=== PATIENT | male | born 1945 | race Caucasian/White ===

== ENCOUNTER 2016-09-10 11:17 | Emergency (ER) | payer OTHER ==
[~2016-09-10] VITALS: Ht 177.8 cm; Wt 95.7 kg
[2016-09-10 11:24] VITALS: TEMP 36.6; Ht 177.8 cm; Wt 95.7 kg
[2016-09-10] MEDS ORDERED: LOSA25TA18 PO (11:40)
[2016-09-10] MEDS ORDERED: ASPI81TA28 PO (11:40)
[2016-09-10] MEDS ORDERED: METO25TA56 PO (11:40)
[2016-09-10] MEDS ORDERED: SILD100T PO (11:40)
[2016-09-10] MEDS ORDERED: ROSU40TA PO (11:40)
[2016-09-10] MEDS ORDERED: ISOS30TA3 PO (11:40)
[2016-09-10 12:26] LABS: BASO % 0.2 %; BASO ABS # 0.03 K/uL (0-0.2); COMPLETE YES; EOS % 1.7 %; HEMATOCRIT 38.3 % (42-52); IG% 0.2 %; LYMPH % 5.2 %; LYMPH ABS # 0.69 K/uL (1.2-3.4); MEAN CELL VOLUME 85.1 fL (80-100); MEAN CORPUSCULAR HEMOGLOBIN 31.1 pg (25-34); MEAN CORPUSCULAR HGB CONC 36.6 g/dl (32-36); MEAN PLATELET VOLUME 10.4 fL (7.4-10.4); MONO % 8.2 %; NEUT % 84.5 %; PLATELET COUNT 163 K/uL (130-400); WHITE BLOOD COUNT 13.24 K/uL (4.8-10.8)
[2016-09-10 12:42] LABS: ALT/SGPT 25 U/L (12-78); AST/SGOT 12 U/L (15-37); BLOOD UREA NITROGEN 23 mg/dl (7-18); BUN/CREATININE RATIO 18.8 (10-20); CALCIUM 8.5 mg/dl (8.5-10.1); CARBON DIOXIDE 28 mmol/L (21-32); CHLORIDE 104 mmol/L (98-107); GLUCOSE 115 mg/dl (70-99); POTASSIUM 4.2 mmol/L (3.5-5.1); SODIUM 139 mmol/L (136-145)
--- NOTE | 2016-09-10 12:45 | EMERGENCY ROOM VISIT NOTE ---
ED Visit Note First contact with patient: 11:40 I have seen and examined this patient with Adelso Steele and generally agree with the treatment plan as discussed. Current/Historical Medications Scheduled Aspirin (Aspirin Ec), 81 MG PO DAILY Isosorbide Mononitrate Ext Rel (Imdur Ext Rel), 30 MG PO QAM Losartan Potassium (Cozaar), 25 MG PO DAILY Metoprolol Tartrate (Lopressor) (Lopressor), 25 MG PO DAILY Rosuvastatin Calcium (Crestor), 40 MG PO DAILY Sildenafil Citrate (Viagra), 50 MG PO PRN Allergies Coded Allergies: Amoxicillin (Verified Allergy, Intermediate, HIVES, 09/10/16) Lisinopril (Verified Allergy, Unknown, COUGH, 09/10/16) Vital Signs Date Time Temp Pulse Resp B/P Pulse Ox O2 Delivery O2 Flow Rate FiO2 09/10/16 11:24 36.6 58 18 114/62 93 Room Air Laboratory Results 09/10/16 12:10 Red Blood Count 4.50, Mean Corpuscular Volume 85.1, Mean Corpuscular Hemoglobin 31.1, Mean Corpuscular Hemoglobin Concent 36.6, Mean Platelet Volume 10.4, Neutrophils (%) (Auto) 84.5, Lymphocytes (%) (Auto) 5.2, Monocytes (%) (Auto) 8.2, Eosinophils (%) (Auto) 1.7, Basophils (%) (Auto) 0.2, Neutrophils # (Auto) 11.18, Lymphocytes # (Auto) 0.69, Monocytes # (Auto) 1.09, Eosinophils # (Auto) 0.22, Basophils # (Auto) 0.03 09/10/16 12:10 Test 09/10/16 11:47 09/10/16 12:10 Creatine Kinase MB Ratio (0-3.0) White Blood Count 13.24 K/uL (4.8-10.8) Red Blood Count 4.50 M/uL (4.7-6.1) Hemoglobin 14.0 g/dL (14.0-18.0) Hematocrit 38.3 % (42-52) Mean Corpuscular Volume 85.1 fL (80-100) Mean Corpuscular Hemoglobin 31.1 pg (25-34) Mean Corpuscular Hemoglobin Concent 36.6 g/dl (32-36) Platelet Count 163 K/uL (130-400) Mean Platelet Volume 10.4 fL (7.4-10.4) Neutrophils (%) (Auto) 84.5 % Lymphocytes (%) (Auto) 5.2 % Monocytes (%) (Auto) 8.2 % Eosinophils (%) (Auto) 1.7 % Basophils (%) (Auto) 0.2 % Neutrophils # (Auto) 11.18 K/uL (1.4-6.5) Lymphocytes # (Auto) 0.69 K/uL (1.2-3.4) Monocytes # (Auto) 1.09 K/uL (0.11-0.59) Eosinophils # (Auto) 0.22 K/uL (0-0.5) Basophils # (Auto) 0.03 K/uL (0-0.2) RDW Standard Deviation 39.2 fL (36.4-46.3) RDW Coefficient of Variation 12.7 % (11.5-14.5) Immature Granulocyte % (Auto) 0.2 % Immature Granulocyte # (Auto) 0.03 K/uL (0.00-0.02) Anion Gap 7.0 mmol/L (3-11) Est Creatinine Clear Calc Drug Dose 65.6 ml/min Estimated GFR () 70.1 Estimated GFR (Non- 60.5 BUN/Creatinine Ratio 18.8 (10-20) Calcium Level 8.5 mg/dl (8.5-10.1) Aspartate Amino Transf (AST/SGOT) 12 U/L (15-37) Alanine Aminotransferase (ALT/SGPT) 25 U/L (12-78) Albumin 3.7 gm/dl (3.4-5.0) Departure Information Referrals Seb Valdez III, M.D. (PCP) Patient Instructions My [facility]
[2016-09-10 12:47] LABS: ALB/GLOB RATIO 1.1 (0.9-2); ALKALINE PHOSPHATASE 65 U/L (45-117)
--- NOTE | 2016-09-10 12:49 | DIAGNOSTIC IMAGING REPORT ---
CHEST 2 VIEWS ROUTINE CLINICAL HISTORY: Syncope. COMPARISON STUDY: Chest radiograph March 31, 2010. FINDINGS: Lung volumes are normal. Lungs are clear with the exception of suspected left basilar atelectasis. No consolidation is present and there is no evidence of pulmonary edema. The cardiomediastinal silhouette is normal. IMPRESSION: No acute cardiopulmonary findings. Electronically signed by: Samir Walker M.D. 09/10/2016 12:47 PM Dictated Date/Time: 09/10/2016 12:47 PM
[2016-09-10 13:16] VITALS: BP 113/62; PULSE 58; O2SAT 94
--- NOTE | 2016-09-10 20:29 | EMERGENCY ROOM VISIT NOTE ---
History First contact with patient: 11:40 Chief Complaint: SYNCOPE Stated Complaint: SYNCOPE Nursing Triage Summary: Patient arrived via ALS. Patient states was at voodoo standing and singing when he suddenly felt nauseated and his vision began closing in. Per patients , "he lowered himself down to his seat, his head went down to his chest, he made some strange sounds, and then he stood right back up". Patient blacked out for approximately 30 seconds. Patient states has been sick recently with cold symptoms. Patient states feels fine at this time. A&Ox4. Denies CP, SOB, N/V/D, dizziness or lightheadedness at this time. History of Present Illness The patient is a 71 year old white male who presents to the Emergency Room with complaints of passing out at voodoo today. Patient states he remembers standing up during song. He had a sudden wave of severe nausea and began getting tunnel vision. He does not remember anything after that. His states that he sat down, put his chin on his chest, had a few deep guttural breaths, and seemed to pass out. She rubbed his hand and asked if he was okay. She states he then stood up as if nothing was wrong. Patient begins to remember at that point. He was able to ambulate out of voodoo. He arrives by ALS ambulance. He states he feels fine now. No prior history of similar episode. He denies any chest pain, shortness of breath, or abdominal pain at the time of his syncopal episode. He denies any headache. No change currently in vision or speech. He denies any weakness in his extremities. He states he is very healthy. He denies any diabetes or significant vascular disease. He came in for evaluation today just to be reassured. Review of Systems REVIEW OF SYSTEM: HEENT: No dizziness, visual problems, hearing loss, or tinnitus. There is no difficulty swallowing and no oral lesions are present. PULMONARY: No cough, shortness of breath, sputum production or hemoptysis. CARDIOVASCULAR: No chest pain, palpitations, shortness of breath or peripheral edema. GASTROINTESTINAL: No diarrhea, constipation, nausea, vomiting, or abdominal pain. GENITOURINARY: No dysuria, frequency, urgency or nocturia. NEUROLOGIC: No weakness, muscle tenderness, epilepsy or history of neurological problems. MUSCULOSKELETAL: No history of joint tenderness/swelling. No history of arthritis or arthralgias. SKIN: No rashes or lesions. PSYCHIATRIC: No history of depression or mental illness. ENDOCRINE: No history of diabetes, thyroid disorders, or abnormal hair growth. Past Medical/Surgical History Previous surgeries: None Medical history: Significant for hypertension, elevated cholesterol, and erectile dysfunction Family History For heart disease. Parents are . Social History Smoking Status: Former Smoker Smokeless Tobacco Use: No Alcohol Use: occasionally Drug Use: none Marital Status: Housing Status: lives with family Occupation Status: retired Current/Historical Medications Scheduled Aspirin (Aspirin Ec), 81 MG PO DAILY Isosorbide Mononitrate Ext Rel (Imdur Ext Rel), 30 MG PO QAM Losartan Potassium (Cozaar), 25 MG PO DAILY Metoprolol Tartrate (Lopressor) (Lopressor), 25 MG PO DAILY Rosuvastatin Calcium (Crestor), 40 MG PO DAILY Sildenafil Citrate (Viagra), 50 MG PO PRN Allergies Coded Allergies: Amoxicillin (Verified Allergy, Intermediate, HIVES, 09/10/16) Lisinopril (Verified Allergy, Unknown, COUGH, 09/10/16) Physical Exam Vital Signs Date Time Temp Pulse Resp B/P Pulse Ox O2 Delivery O2 Flow Rate FiO2 09/10/16 13:16 58 18 113/62 94 09/10/16 11:24 36.6 58 18 114/62 93 Room Air Physical Exam Gen.: Well developed, well-nourished, elderly white male, who looks younger than his stated age. Laying on a bed. Alert and oriented. Skin:Warm and dry with good turgor. No rashes or lesions. No ecchymosis or erythema. The patient is not diaphoretic. No abrasions. HEENT: Normocephalic atraumatic. Eyes PERRLA, EOMI. No conjunctiva or scleral injection. Ears TMs intact bilaterally with good light reflexes. No erythema or bulging. No hemotympanum. Canals are patent. Nares patent bilaterally without turbinate enlargement. No significant drainage. No epistaxis. Oropharynx without erythema or exudate. Uvula midline, oral mucosa moist. No lesions present. Heart: Heart bradycardic with regular rhythm. No MGR. Peripheral pulses are 2+ . Lungs: Lungs are clear to auscultation. No crackles rhonchi or wheezing. Good air movement. The patient is able to take a deep breath. Abdomen: Abdomen was inspected, auscultated, and palpated. Bowel sounds present x 4. Soft, nontender to palpation. No hepato-splenomegaly. No masses noted. Musculoskeletal: Gross motor function of the upper and lower extremities is intact and unremarkable. No appreciable unilateral weakness. Neurologic: Cranial nerves II through XII are intact. Gross sensation is intact across the upper and lower extremities by soft touch. DTRs are 2+ bilaterally at the knees. Radial, median, and ulnar nerve functions are clearly intact for both upper extremities. Medical Decision & Procedures ER Provider Diagnostic Interpretation: EKG obtained today was reviewed with Dr. Paul. It shows sinus bradycardia with a rate of [address] or T-wave changes. Chest x-ray obtained today was read by radiology as unremarkable. Laboratory Results 09/10/16 12:10 Red Blood Count 4.50, Mean Corpuscular Volume 85.1, Mean Corpuscular Hemoglobin 31.1, Mean Corpuscular Hemoglobin Concent 36.6, Mean Platelet Volume 10.4, Neutrophils (%) (Auto) 84.5, Lymphocytes (%) (Auto) 5.2, Monocytes (%) (Auto) 8.2, Eosinophils (%) (Auto) 1.7, Basophils (%) (Auto) 0.2, Neutrophils # (Auto) 11.18, Lymphocytes # (Auto) 0.69, Monocytes # (Auto) 1.09, Eosinophils # (Auto) 0.22, Basophils # (Auto) 0.03 09/10/16 12:10 Test 09/10/16 12:10 White Blood Count 13.24 K/uL (4.8-10.8) Red Blood Count 4.50 M/uL (4.7-6.1) Hemoglobin 14.0 g/dL (14.0-18.0) Hematocrit 38.3 % (42-52) Mean Corpuscular Volume 85.1 fL (80-100) Mean Corpuscular Hemoglobin 31.1 pg (25-34) Mean Corpuscular Hemoglobin Concent 36.6 g/dl (32-36) Platelet Count 163 K/uL (130-400) Mean Platelet Volume 10.4 fL (7.4-10.4) Neutrophils (%) (Auto) 84.5 % Lymphocytes (%) (Auto) 5.2 % Monocytes (%) (Auto) 8.2 % Eosinophils (%) (Auto) 1.7 % Basophils (%) (Auto) 0.2 % Neutrophils # (Auto) 11.18 K/uL (1.4-6.5) Lymphocytes # (Auto) 0.69 K/uL (1.2-3.4) Monocytes # (Auto) 1.09 K/uL (0.11-0.59) Eosinophils # (Auto) 0.22 K/uL (0-0.5) Basophils # (Auto) 0.03 K/uL (0-0.2) RDW Standard Deviation 39.2 fL (36.4-46.3) RDW Coefficient of Variation 12.7 % (11.5-14.5) Immature Granulocyte % (Auto) 0.2 % Immature Granulocyte # (Auto) 0.03 K/uL (0.00-0.02) Anion Gap 7.0 mmol/L (3-11) Est Creatinine Clear Calc Drug Dose 65.6 ml/min Estimated GFR () 70.1 Estimated GFR (Non- 60.5 BUN/Creatinine Ratio 18.8 (10-20) Calcium Level 8.5 mg/dl (8.5-10.1) Total Bilirubin 1.6 mg/dl (0.2-1) Aspartate Amino Transf (AST/SGOT) 12 U/L (15-37) Alanine Aminotransferase (ALT/SGPT) 25 U/L (12-78) Alkaline Phosphatase 65 U/L (45-117) Total Creatine Kinase 144 U/L (39-308) Creatine Kinase MB 1.4 ng/ml (0.5-3.6) Creatine Kinase MB Ratio 1.0 (0-3.0) Troponin I < 0.015 ng/ml (0-0.045) Total Protein 7.2 gm/dl (6.4-8.2) Albumin 3.7 gm/dl (3.4-5.0) Globulin 3.5 gm/dl (2.5-4.0) Albumin/Globulin Ratio 1.1 (0.9-2) CBC, chem panel, CK/CK-MB, and troponin were obtained today. They are unremarkable Except for mild anemia ED Course Patient was educated regarding today's findings as was his . Conservative care measures were discussed. IV was established. Labs were obtained. Chest x -ray and EKG were also obtained. Patient was monitored while in the ED. He remained stable. He felt well enough for discharge. Patient will follow-up with his PCP to discuss a possible change in his blood pressure medication, as this may be making him bradycardic. This may have contributed to his syncopal episode. Maintain hydration. Return to the ED for any other acute changes. Medical Decision Possibility of being overheated, hypoglycemia, electrolyte abnormality, hypotension, arrhythmia, acute HI, or other cardiac source was also considered. Impression Primary Impression: Syncope Departure Information Referrals Seb Valdez III, M.D. (PCP) Patient Instructions My [facility] Problem Qualifiers Primary Impression: Syncope Encounter type: initial encounter
== END 2016-09-10 13:17 | disposition home or self-care (01) ==
LOC: EDBD 11:17 → C.EDC 11:19
DX: R55 Syncope and collapse (principal); R00.1 Bradycardia, unspecified; Z87.891 Personal history of nicotine dependence; Z79.82 Long term (current) use of aspirin

== ENCOUNTER 2017-07-23 05:33 | Inpatient (IN) | payer OTHER ==
--- NOTE | 2017-07-11 08:45 | PAT Medication Instructions ---
Service Date Jul 11, 2017. Current Home Medication List Aspirin (Aspirin Ec), 81 MG PO QAM Isosorbide Mononitrate Ext Rel (Imdur Ext Rel), 30 MG PO QAM Losartan Potassium (Cozaar), 25 MG PO QAM Metoprolol Tartrate (Lopressor) (Lopressor), 25 MG PO QAM Naproxen (Aleve), 220 MG PO prn Nitroglycerin (Nitrostat), 0.4 MG UT PRN Rosuvastatin Calcium (Crestor), 40 MG PO QAM Sildenafil Citrate (Viagra), 100 MG PO PRN Medication Instructions For Your Scheduled Surgery - Continue as directed: Nitroglycerin (Nitrostat), 0.4 MG UT PRN - Hold the following medications the morning of surgery: Losartan Potassium (Cozaar), 25 MG PO QAM Sildenafil Citrate (Viagra), 100 MG PO PRN Naproxen (Aleve), 220 MG PO prn (otherwise okay to continue per surgeon) - Take the following medications the morning of surgery with a sip of water OTHERWISE NOTHING TO EAT OR DRINK AFTER MIDNIGHT: Isosorbide Mononitrate Ext Rel (Imdur Ext Rel), 30 MG PO QAM Aspirin (Aspirin Ec), 81 MG PO QAM (unless otherwise indicated by surgeon) Metoprolol Tartrate (Lopressor) (Lopressor), 25 MG PO QAM Rosuvastatin Calcium (Crestor), 40 MG PO QAM If you have any questions please call us at [phone] or [phone] or [phone]
[~2017-07-23] VITALS: Ht 175.3 cm; Wt 93.3 kg
[2017-07-23] VITALS (7 sets, daily range): BP systolic 101–141; BP diastolic 58–88; PULSE 58–70; TEMP 36.4–37; O2SAT 90–95
[~2017-07-23 05:33] MED LIST: ASPI81TA28 PO; ISOS30TA3 PO; LOSA25TA18 PO; METO25TA56 PO; NAPR1TAB9 PO; NTRGSL/4 UT; ROSU40TA PO; SILD100T PO
[2017-07-23] MEDS ORDERED: CLINDAMYCIN IV 900 MG in DEXTROSE 5% 50ML IV SCH (06:00)
[2017-07-23] MEDS ORDERED: GENERAL ORDER PROBLEM SCH (06:00)
[2017-07-23] MEDS ORDERED: LACTATED RINGER'S 1000ML 1,000 ML IV SCH (06:00)
[2017-07-23] MEDS ORDERED: PHENYLEPHRINE 100MCG/ML 5ML SYR IV PRN (06:30)
[2017-07-23] MEDS ORDERED: EpHEDrine SULFATE INJ 50 MG/ML AMP IV PRN (06:30)
[2017-07-23] MEDS ORDERED: FENTANYL CITRATE INJ 50 MCG/1 ML 2 ML VIAL IV PRN (06:30)
[2017-07-23] MEDS ORDERED: HYDROmorphone INJ 1 MG/ML SYR IV PRN (06:30)
[2017-07-23] MEDS ORDERED: ATROPINE SULFATE 0.1 MG/ML 5ML SYR IV PRN (06:30)
[2017-07-23] MEDS ORDERED: ONDANSETRON INJ 2 MG/ML 2 ML VIAL IV PRN (06:30)
[2017-07-23] MEDS ORDERED: BUPIVACAINE 0.5 % 5 MG/1 ML MPF 30ML VIAL ONE (06:40)
[2017-07-23] MEDS ORDERED: LIDOCAINE HCL 2% 2 ML VIAL (20MG/ML) ONE (06:50)
[2017-07-23] MEDS ORDERED: PROPOFOL IV EMULSION 10 MG/ML 20 ML VIAL IV ONE (06:50)
[2017-07-23] MEDS ORDERED: ROCURONIUM BROMIDE 10 MG/ML 5 ML VIAL IV ONE ×2 (06:50→09:40)
--- NOTE | 2017-07-23 06:50 | History & Physical Bridge Note ---
H&P Re-Evaluation Bridge Note: I have examined the patient, reviewed the History & Physical and in the interval since the performance of the History & Physical I have noted the following changes of clinical significance: No changes noted
[2017-07-23] MEDS ORDERED: MIDAZOLAM HCL 1 MG/ML 2ML VIAL ONE (06:51)
[2017-07-23] MEDS ORDERED: FENTANYL CITRATE INJ 50 MCG/1 ML 2 ML VIAL ONE ×3 (06:51→08:47)
[2017-07-23] MEDS ORDERED: CLINDAMYCIN 600 MG/54 ML D5W IV ONE (07:05)
[2017-07-23] MEDS ORDERED: CLINDAMYCIN PHOS 150 MG/ML 2 ML VIAL ONE (07:34)
[2017-07-23] MEDS ORDERED: NEOSTIGMINE METHYLSULFATE 5 MG/5 ML SYR ONE (07:38)
[2017-07-23] MEDS ORDERED: EpHEDrine SULFATE 50MG/5ML SYR ONE (07:38)
[2017-07-23] MEDS ORDERED: ONDANSETRON INJ 2 MG/ML 2 ML VIAL ONE (07:38)
[2017-07-23] MEDS ORDERED: GLYCOPYRROLATE INJ 0.2 MG/ML VIAL ONE (07:38)
[2017-07-23] MEDS ORDERED: DEXAMETHASONE SOD INJ 4 MG/ML VIAL ONE (07:38)
[2017-07-23] MEDS ORDERED: HYDROmorphone INJ 2 MG/ML SYR/VIAL ONE (09:06)
--- NOTE | 2017-07-23 09:54 | [facility] Post Operative Brief Note ---
Immediate Operative Summary Operative Date Jul 23, 2017. Pre-Operative Diagnosis Tubulovillous Adenoma of Right Colon Post-Operative Diagnosis Tubulovillous Adenoma of Right Colon Procedure(s) Performed Laparoscopic Assisted to Open Right Hemicolectomy Surgeon Dr Wynn Courier Driver Surgeon(s) Cora Osman PA-C Estimated Blood Loss 20cc Findings See Below See dictation Specimens A: Right Colon Drains None Anesthesia Type General Complication(s) none Disposition Disposition: Recovery Room / PACU
[2017-07-23] MEDS ORDERED: NALOXONE HCL 0.4 MG/1 ML VIAL/CARP IV PRN (10:00)
[2017-07-23] MEDS ORDERED: HYDROmorphone HCL 0.5MG/ML 50 ML CASSETTE ONE (10:15)
--- NOTE | 2017-07-23 10:35 | Anesthesiology Progress Note ---
Anesthesia Post Op Note Date & Time Jul 23, 2017 at 10:35 Vital Signs Pain Intensity: 0 Vital Signs Past 12 Hours Date Time Temp Pulse Resp B/P (MAP) Pulse Ox O2 Delivery O2 Flow Rate FiO2 07/23/17 10:30 55 16 135/78 97 Nasal Cannula 4 07/23/17 10:20 57 16 128/62 96 Oxymask 10 07/23/17 10:10 55 16 114/63 96 Oxymask 10 07/23/17 10:01 36.2 61 16 130/77 95 Oxymask 10 07/23/17 06:22 36.4 58 20 141/88 94 Room Air Notes Mental Status: alert / awake / arousable, participated in evaluation Pt Amnestic to Procedure: Yes Nausea / Vomiting: adequately controlled Pain: adequately controlled Airway Patency, RR, SpO2: stable & adequate BP & HR: stable & adequate Hydration State: stable & adequate Anesthetic Complications: no major complications apparent
[2017-07-23 12:11] LABS: INR 1.1 (0.9-1.1)
[2017-07-23 12:19] LABS: CREATININE 1.12 mg/dl (0.60-1.40)
[2017-07-23] MEDS: SODIUM CHLORIDE 0.9% 1000ML 1,000 ML IV SCH (12:24)
[2017-07-23] MEDS: D5W AND 1/2NSS + 20MEQ KCL 1,000 ML IV SCH ×2 (12:24→20:33)
[2017-07-23] MEDS: HYDROmorphone HCL 0.5MG/ML 50 ML CASSETTE IV PRN ×2 (14:48→22:51)
[2017-07-23] MEDS: ENOXAPARIN 40 MG/0.4 ML SYR SQ SCH (18:16)
--- NOTE | 2017-07-23 19:04 | OPERATIVE REPORT ---
DATE OF OPERATION: 07/23/2017 PREOPERATIVE DIAGNOSIS: Tubulovillous adenoma of the right colon. POSTOPERATIVE DIAGNOSIS: Same. PROCEDURE: Laparoscopic assisted right hemicolectomy. SURGEON: Dr. Wynn. UNDERWATER HUNTER TRAPPER: Cora Osman PA-C FINDINGS: The colon was not dilated nor was the small bowel. There were no obvious intraabdominal lesions. The liver appeared to be of normal size and contour and the visible bowel appeared normal as well. The tubulovillous adenoma in the right colon had been delineated by colonoscopy. TECHNIQUE: The patient was given a general anesthetic and the area was prepped and draped in usual sterile fashion. A vertical incision was made above the umbilicus, carried down through the subcutaneous tissue to the fascia which was grasped with 2 Adriel clamps and incised between. The peritoneum was identified, incised, and the introducer was placed bluntly. The abdomen was then insufflated to a pressure of 15 mmHg with carbon dioxide. Two 5 mm introducers were placed on the left side of the abdomen. Beginning in the mid right colon, the line of Toldt was divided then I worked inferiorly and superiorly. Working inferiorly, the appendix was adherent to the lateral abdominal wall and those attachments were divided and I worked from a colon down along the mesentery dividing further flimsy attachments. The terminal ileum was also adhesed to the lateral abdominal wall and those adhesions and attachments were divided allowing good mobilization of the cecum and proximal ascending colon. I then worked along the lateral aspect of the right colon working from superior to inferior and dividing further attachments along the line of Toldt up around the hepatic flexure. I then began at the junction of the proximal and middle thirds of the transverse colon and the omentum off the colon wall. I then was able to work towards the right side, placing downward traction on the colon, and dividing and any of the attachments to the posterior abdominal wall and freeing the duodenum away from the mesentery working again from medial to lateral. That allowed me good visualization of the mesentery and any other flimsy attachments were divided. I then worked from medial to lateral, freeing additional areas of the transverse colon to allow for a good mobility. It was clear that the terminal ileum as well as the transverse colon would reach the anterior abdominal wall with ease. Vertical incision was then increased in the abdomen, carried down through the subcutaneous tissue to the fascia which was opened in the midline. The peritoneum was then opened and the gas was allowed to escape. The introducers were then removed. The mobilized colon was easily eviscerated. The site on the terminal ileum was chosen for division and the mesentery was away from the wall of the terminal ileum there and terminal ileum was divided. The site for division of the colon was chosen and the mesentery was away from the wall of the colon and it was divided using the BREANNE as well. The intervening mesentery was divided using the LigaSure. The major vessels were clamped, divided and ligated with 2-0 Vicryl ties as well as a 2-0 silk LigaSure. This was carried from the colon and side towards the small bowel side until the entire mesentery had been divided that specimen was passed off. The area of dissection was inspected for bleeding and none was seen. The small bowel was of approximated towards the colon, making sure not to twist the mesentery and the posterior half of the mesenteric opening was closed with a running 2-0 Vicryl. The small bowel was then approximated to the colon wall using interrupted 3-0 silk sutures. The antimesenteric border of each of the staple lines was removed and one limb of the BREANNE was then passed into each lumen of the small bowel and colon. The BREANNE was then used to perform the anastomosis. At the apex of the staple line, another 3-0 silk suture was placed for reinforcement. The common opening was then closed with a TA stapler. Additional 3-0 silk sutures were placed on the anterior surface of the anastomosis for further reinforcement. The remainder of the mesenteric opening was closed with a running 2-0 Vicryl. The area was inspected for bleeding and none was seen. The anastomosis was placed back into its anatomic position and the omentum was brought down over it. There was no evidence of bleeding. The right upper quadrant was irrigated and irrigation removed. The fascia in the midline of the larger incision was closed with running #1 PDS. The skin of all the incisions was closed with janey. The estimated blood loss was 20 mL. Sponge, needle and instrument counts were correct prior to closure. The patient tolerated surgical procedure without complication and was transferred to recovery. I attest to the content of the Intraoperative Record and any orders documented therein. Any exception s are noted below.
[2017-07-24] VITALS (8 sets, daily range): BP systolic 113–164; BP diastolic 62–77; PULSE 64–73; TEMP 36.6–37.2; O2SAT 92–94; Ht 175.3 cm; Wt 93.3 kg
[2017-07-24] MEDS: D5W AND 1/2NSS + 20MEQ KCL 1,000 ML IV SCH ×3 (03:30→19:26)
[2017-07-24] MEDS: HYDROmorphone HCL 0.5MG/ML 50 ML CASSETTE IV PRN ×3 (07:04→22:59)
[2017-07-24 07:53] LABS: HEMATOCRIT 40.4 % (42-52); HEMOGLOBIN 14.4 g/dL (14.0-18.0); IG# 0.03 K/uL (0.00-0.02); LYMPH % 4.5 %; MEAN CELL VOLUME 86.3 fL (80-100); MEAN CORPUSCULAR HEMOGLOBIN 30.8 pg (25-34); MEAN CORPUSCULAR HGB CONC 35.6 g/dl (32-36); MEAN PLATELET VOLUME 10.4 fL (7.4-10.4); MONO ABS # 0.93 K/uL (0.11-0.59); NEUT % 88.3 %; NEUT ABS # 11.72 K/uL (1.4-6.5); PLATELET COUNT 174 K/uL (130-400); RED CELL DISTRIBUTION WIDTH CV 13.1 % (11.5-14.5); RED CELL DISTRIBUTION WIDTH SD 41.6 fL (36.4-46.3); WHITE BLOOD COUNT 13.28 K/uL (4.8-10.8)
[2017-07-24 08:09] LABS: CALCIUM 8.4 mg/dl (8.5-10.1); CREATININE 1.2 mg/dl (0.60-1.40); POTASSIUM 4.2 mmol/L (3.5-5.1)
--- NOTE | 2017-07-24 11:10 | Anesthesiology Progress Note ---
Anesthesia Post Op Note Date & Time Jul 24, 2017 at 11:10 Vital Signs Vital Signs Past 12 Hours Date Time Temp Pulse Resp B/P (MAP) Pulse Ox O2 Delivery O2 Flow Rate FiO2 07/24/17 08:00 Room Air 07/24/17 07:10 37.0 70 16 157/73 (101) 93 Room Air 07/24/17 05:55 94 Room Air 07/24/17 03:53 36.6 64 16 113/62 (79) 92 Nasal Cannula 1.0 07/23/17 23:25 Nasal Cannula 1.0 Notes Mental Status: alert / awake / arousable, participated in evaluation Pt Amnestic to Procedure: Yes Nausea / Vomiting: adequately controlled Pain: adequately controlled Airway Patency, RR, SpO2: stable & adequate BP & HR: stable & adequate Hydration State: stable & adequate Anesthetic Complications: no major complications apparent
[2017-07-24] MEDS: SODIUM CHLORIDE 0.9% 1000ML 1,000 ML IV SCH (11:15)
--- NOTE | 2017-07-24 14:23 | Surgery Progress Note ---
Surgery Progress Note Date of Service Jul 24, 2017. Subjective Post OP Day: 1 (s/p laparoscopic assisted right hemicolectomy) + feeling well, + ambulating, + pain controlled, No complaints, No chest pain, No SOB, No bowel movement, No flatus, No nausea, No vomiting Objective Vital Signs: Date Time Temp Pulse Resp B/P (MAP) Pulse Ox O2 Delivery O2 Flow Rate FiO2 07/24/17 11:45 37.1 67 16 146/70 (95) 93 Room Air 07/24/17 08:00 Room Air 07/24/17 07:10 37.0 70 16 157/73 (101) 93 Room Air 07/24/17 05:55 94 Room Air 07/24/17 03:53 36.6 64 16 113/62 (79) 92 Nasal Cannula 1.0 07/23/17 23:25 Nasal Cannula 1.0 07/23/17 22:46 36.9 68 16 110/58 (75) 93 Nasal Cannula 1.0 07/23/17 20:51 37.0 70 16 139/71 (93) 92 Nasal Cannula 1.0 07/23/17 15:30 Nasal Cannula 1.0 07/23/17 15:15 36.5 66 16 101/63 (76) 93 Nasal Cannula 1.0 General Appearance: WD/WN, no apparent distress Head: normocephalic, atraumatic Neck: trachea midline Respiratory/Chest: no respiratory distress, no accessory muscle use Cardiovascular: regular rate, rhythm, no murmur Abdomen: non distended, soft, no organomegaly, no pulsatile mass, + abnormal bowel sounds (absent bowel sounds), + pertinent finding (dressing present) Incision(s): clean, dry (dressing clean and dry, incision not inspected on POD # 1, no drainage) Laboratory Results: Results Past 24 Hours Test 07/24/17 07:14 Range/Units White Blood Count 13.28 4.8-10.8 K/uL Red Blood Count 4.68 4.7-6.1 M/uL Hemoglobin 14.4 14.0-18.0 g/dL Hematocrit 40.4 42-52 % Mean Corpuscular Volume 86.3 80-100 fL Mean Corpuscular Hemoglobin 30.8 25-34 pg Mean Corpuscular Hemoglobin Concent 35.6 32-36 g/dl Platelet Count 174 130-400 K/uL Mean Platelet Volume 10.4 7.4-10.4 fL Neutrophils (%) (Auto) 88.3 % Lymphocytes (%) (Auto) 4.5 % Monocytes (%) (Auto) 7.0 % Eosinophils (%) (Auto) 0.0 % Basophils (%) (Auto) 0.0 % Neutrophils # (Auto) 11.72 1.4-6.5 K/uL Lymphocytes # (Auto) 0.60 1.2-3.4 K/uL Monocytes # (Auto) 0.93 0.11-0.59 K/uL Eosinophils # (Auto) 0.00 0-0.5 K/uL Basophils # (Auto) 0.00 0-0.2 K/uL RDW Standard Deviation 41.6 36.4-46.3 fL RDW Coefficient of Variation 13.1 11.5-14.5 % Immature Granulocyte % (Auto) 0.2 % Immature Granulocyte # (Auto) 0.03 0.00-0.02 K/uL Sodium Level 138 136-145 mmol/L Potassium Level 4.2 3.5-5.1 mmol/L Chloride Level 105 98-107 mmol/L Carbon Dioxide Level 29 21-32 mmol/L Anion Gap 4.0 3-11 mmol/L Blood Urea Nitrogen 14 7-18 mg/dl Creatinine 1.20 0.60-1.40 mg/dl Est Creatinine Clear Calc Drug Dose 62.8 ml/min Estimated GFR () 69.6 Estimated GFR (Non- 60.1 BUN/Creatinine Ratio 11.5 10-20 Random Glucose 128 70-99 mg/dl Calcium Level 8.4 8.5-10.1 mg/dl Assessment & Plan POD # 1 s/p laparoscopic assisted right hemicolectomy -vitals stable, afebrile overnight - abdominal pain minimal - no nausea or vomiting - urinating and ambulating without difficulty Plan: Continue current management Continue NPO, await return of bowel function Encouraged ambulation with assistance, OOB to chair, and incentive spirometry Continue SCDs and Lovenox daily Continue IV Dilaudid AIX ADMINISTRATOR for now, will start PO pain medication once able to take clears Dressing changes to start tomorrow Discussed with Dr. Wynn who agrees with above
[2017-07-24] MEDS ORDERED: NITROGLYCERIN 0.4 MG SL PER TAB CHARGE UT PRN (17:30)
--- NOTE | 2017-07-24 17:32 | Medical Consult ---
Consultation Date of Consultation: Jul 24, 2017. Attending Physician: Zak Wynn M.D. Reason for Consultation: post-op medical management History of Present Illness This is a 72yo M with a PMH of HTN, HLD, CAD and chronic sinus bradycardia who is POD#1 s/p laparoscopic assisted R hemicolectomy by Dr. Wynn. Patient is doing well post-operatively. Has some residual abdominal pressure at surgical site, especially when sitting up. States that pain is being controlled adequately and has been ambulating the halls without problems. Denies any fevers , chills, lightheadedness, headache, chest pain, palpitations, SOB, nausea, vomiting or LE swelling. Has remained NPO since procedure. No bowel movement yet. Has a history of stable CAD but has not required any stenting. Last took blood pressure medications the morning of the surgery. Past Medical/Surgical History Medical Problems: (1) CAD (coronary artery disease) Status: Chronic (2) Chronic sinus bradycardia Status: Chronic (3) HLD (hyperlipidemia) Status: Chronic (4) HTN (hypertension) Status: Chronic (5) Tubulovillous adenoma of colon Status: Chronic Surgical Problems: (1) S/P right hemicolectomy Status: Chronic Family History FH: heart disease FATHER Social History Smoking Status: Former Smoker Alcohol Use: 1-2 drinks daily Drug Use: none Marital Status: Housing Status: lives with family Occupation Status: retired Allergies Coded Allergies: Amoxicillin (Verified Allergy, Intermediate, HIVES, 07/23/17) Lisinopril (Verified Adverse Reaction, Unknown, COUGH, 07/23/17) Home Medications Reported Home Medications Medications Dose Route/Sig Max Daily Dose Days Date Category Aleve (Naproxen) 220 Mg Tab 220 Mg PO PRN 07/11/17 Reported Nitrostat (Nitroglycerin) 0.4 Mg Tab 0.4 Mg UT PRN 07/11/17 Reported Viagra (Sildenafil Citrate) 100 Mg Tab 100 Mg PO PRN 09/10/16 Reported Aspirin Ec (Aspirin) 81 Mg Tab 81 Mg PO QAM 09/10/16 Reported Crestor (Rosuvastatin Calcium) 40 Mg Tab 40 Mg PO QAM 09/10/16 Reported Lopressor (Metoprolol Tartrate) 25 Mg Tab 25 Mg PO QAM 09/10/16 Reported Cozaar (Losartan Potassium) 25 Mg Tab 25 Mg PO QAM 09/10/16 Reported Imdur Ext Rel (Isosorbide Mononitrate) 30 Mg Ertab 30 Mg PO QAM 09/10/16 Reported Current Inpatient Medications Current Inpatient Medications Medications (Trade) Dose Ordered Sig/Goldy Route Start Time Stop Time Status Last Admin Dose Admin Enoxaparin Sodium (Lovenox Inj) 40 mg Q24H SQ 07/23/17 18:00 08/22/17 17:59 07/23/17 18:16 40 MG Ondansetron HCl (Zofran Inj) 4 mg Q6H PRN IV 07/23/17 10:00 08/22/17 09:59 Potassium Chloride/Dextrose/ Sod Cl 1,000 ml @ 125 mls/hr Q8H IV 07/23/17 11:30 08/22/17 11:29 07/24/17 11:47 125 MLS/HR Naloxone HCl (Narcan Inj) 0.1 mg Q5M PRN IV 07/23/17 10:00 08/22/17 09:59 Hydromorphone HCl (Dilaudid Well Cleaner) 25 mg PRN PRN IV 07/23/17 10:00 08/06/17 09:59 07/24/17 15:15 25 MG Sodium Chloride 1,000 ml @ 15 mls/hr Q24H IV 07/23/17 11:15 08/22/17 11:14 07/23/17 12:24 15 MLS/HR Review of Systems Ten systems reviewed and negative except as noted in the HPI. Physical Exam Date Time Temp Pulse Resp B/P (MAP) Pulse Ox O2 Delivery O2 Flow Rate FiO2 07/24/17 15:46 71 158/77 (104) 07/24/17 15:40 Room Air 07/24/17 15:28 37.2 73 18 164/75 (104) 94 Room Air 07/24/17 11:45 37.1 67 16 146/70 (95) 93 Room Air 07/24/17 08:00 Room Air 07/24/17 07:10 37.0 70 16 157/73 (101) 93 Room Air 07/24/17 05:55 94 Room Air 07/24/17 03:53 36.6 64 16 113/62 (79) 92 Nasal Cannula 1.0 07/23/17 23:25 Nasal Cannula 1.0 2/5/18 22:46 36.9 68 16 110/58 (75) 93 Nasal Cannula 1.0 07/23/17 20:51 37.0 70 16 139/71 (93) 92 Nasal Cannula 1.0 General Appearance: WD/WN, no apparent distress, + pertinent finding (Sitting in chair, resting comfortably. ) Head: normocephalic, atraumatic Eyes: normal inspection, PERRL, sclerae normal ENT: normal ENT inspection, hearing grossly normal, pharynx normal Neck: supple, thyroid normal, trachea midline Respiratory/Chest: chest non-tender, lungs clear, normal breath sounds, no respiratory distress, no accessory muscle use Cardiovascular: regular rate, rhythm, no murmur, normal peripheral pulses Abdomen/GI: soft, + tenderness (TTP at surgical site ), + pertinent finding ( Dressing clean, dry, intact. ) Back: normal inspection Extremities/Musculoskelatal: normal inspection, no calf tenderness, no pedal edema Neurologic/Psych: no motor/sensory deficits, alert, normal mood/affect, oriented x 3 Skin: normal color, warm/dry Laboratory Results Last 24 Hours Test 07/24/17 07:14 White Blood Count 13.28 K/uL Red Blood Count 4.68 M/uL Hemoglobin 14.4 g/dL Hematocrit 40.4 % Mean Corpuscular Volume 86.3 fL Mean Corpuscular Hemoglobin 30.8 pg Mean Corpuscular Hemoglobin Concent 35.6 g/dl Platelet Count 174 K/uL Mean Platelet Volume 10.4 fL Neutrophils (%) (Auto) 88.3 % Lymphocytes (%) (Auto) 4.5 % Monocytes (%) (Auto) 7.0 % Eosinophils (%) (Auto) 0.0 % Basophils (%) (Auto) 0.0 % Neutrophils # (Auto) 11.72 K/uL Lymphocytes # (Auto) 0.60 K/uL Monocytes # (Auto) 0.93 K/uL Eosinophils # (Auto) 0.00 K/uL Basophils # (Auto) 0.00 K/uL RDW Standard Deviation 41.6 fL RDW Coefficient of Variation 13.1 % Immature Granulocyte % (Auto) 0.2 % Immature Granulocyte # (Auto) 0.03 K/uL Sodium Level 138 mmol/L Potassium Level 4.2 mmol/L Chloride Level 105 mmol/L Carbon Dioxide Level 29 mmol/L Anion Gap 4.0 mmol/L Blood Urea Nitrogen 14 mg/dl Creatinine 1.20 mg/dl Est Creatinine Clear Calc Drug Dose 62.8 ml/min Estimated GFR () 69.6 Estimated GFR (Non- 60.1 BUN/Creatinine Ratio 11.5 Random Glucose 128 mg/dl Calcium Level 8.4 mg/dl Assessment & Plan This is a 72yo M with a PMH of HTN, HLD, CAD and chronic sinus bradycardia who is POD#1 s/p laparoscopic assisted R hemicolectomy by Dr. Wynn. S/p R hemicolectomy: -POD#1 -Pt is doing well post-operatively -Per general surgery for pain control, wound care, anticoagulation and activities -Monitor H&H, continue incentive spirometry -Discussed advancing diet to NPO except meds with primary team HTN: -Usually well-controlled with SBP ~110s, per patient -BP elevated to 158/77 currently -Has not received home meds since yesterday morning -Give today's dose of imdur, metoprolol, losartan -Resume home dosing schedule tomorrow -Monitor HLD: -Resume crestor tomorrow CAD: -Stable -Resume baby aspirin, statin tomorrow Code status: FULL PCP: Courtney Dispo: Per general surgery Patient seen in collaboration with Dr. Warren. Please see addendum. Will be followed by Dr. Evans starting tomorrow. Thank you for this consultation. We will follow the patient with you during their hospital stay. You [facility] via pager @ . ATTENDING ADDENDUM : pt seen and examined, care co ordinated with Leatha Foster PA-C 72 yo M with past medical hx of CAD , single vessel occlusive disease, HTN , hyperlipidemia , underwent elective rt hemicolectomy today pt had recent colonoscopy showed adenomatous polyp with atypical cells / tubulovillous adenoma was recommended for rt hemicolectomy pt had pre op eval with his Cardiology for surgical risk assessment was found to be stable CAD with acceptable risk to proceed for surgery pt underwent laparoscopic assisted surgery on Sunday07/23/17 no untoward complication noted joshua operatively and post op BP was elevated this Am , pt did not had his BP meds due to post op /NPO status antihypertensives resumed , BP improved to baseline this evening pt denies of any chest pain or SOB abdominal pain controlled with current pain meds pt is still NPO -unable to pass gas , bowel sound remains diminished -post op illeus pt is encouraged to increase activity ambulated independently in [address] multiple times Cont management as per Surgery [facility] Hospitalist team will continue to follow this pt during his hospital course Nicolle Warren MD
[2017-07-24] MEDS ORDERED: LOSARTAN POTASSIUM 25 MG TAB PO ONE (18:00)
[2017-07-24] MEDS ORDERED: METOPROLOL TARTRATE 25 MG TAB PO ONE (18:00)
[2017-07-24] MEDS ORDERED: ISOSORBIDE MONONITRATE 30 MG TABCR PO ONE (18:00)
[2017-07-24] MEDS: ENOXAPARIN 40 MG/0.4 ML SYR SQ SCH (18:25)
[2017-07-25] VITALS (12 sets, daily range): BP systolic 95–130; BP diastolic 56–75; PULSE 71–85; TEMP 36.5–38.1; O2SAT 90–94
[2017-07-25] MEDS: SODIUM CHLORIDE 0.9% 1000ML 1,000 ML IV SCH ×3 (01:43→16:36)
--- NOTE | 2017-07-25 06:56 | Surgery Progress Note ---
Surgery Progress Note Date of Service Jul 25, 2017. Subjective Post OP Day: 2 No bowel movement, No flatus, No nausea, No vomiting Had some abdominal pain earlier this AM Objective Vital Signs: Date Time Temp Pulse Resp B/P (MAP) Pulse Ox O2 Delivery O2 Flow Rate FiO2 07/25/17 04:10 37.3 07/25/17 03:33 37.9 79 17 130/75 (93) 91 Room Air 07/25/17 00:00 Room Air 07/24/17 22:58 36.8 69 16 126/68 (87) 93 Room Air 07/24/17 19:29 73 135/73 (93) 07/24/17 15:46 71 158/77 (104) 07/24/17 15:40 Room Air 07/24/17 15:28 37.2 73 18 164/75 (104) 94 Room Air 07/24/17 11:45 37.1 67 16 146/70 (95) 93 Room Air 07/24/17 08:00 Room Air 07/24/17 07:10 37.0 70 16 157/73 (101) 93 Room Air Abdomen: + distended (mild), + tenderness (right side only) Incision(s): clean, dry, intact Laboratory Results: Results Past 24 Hours Test 07/24/17 07:14 07/25/17 04:44 Range/Units White Blood Count 13.28 4.8-10.8 K/uL Red Blood Count 4.68 4.7-6.1 M/uL Hemoglobin 14.4 14.0-18.0 g/dL Hematocrit 40.4 42-52 % Mean Corpuscular Volume 86.3 80-100 fL Mean Corpuscular Hemoglobin 30.8 25-34 pg Mean Corpuscular Hemoglobin Concent 35.6 32-36 g/dl Platelet Count 174 130-400 K/uL Mean Platelet Volume 10.4 7.4-10.4 fL Neutrophils (%) (Auto) 88.3 % Lymphocytes (%) (Auto) 4.5 % Monocytes (%) (Auto) 7.0 % Eosinophils (%) (Auto) 0.0 % Basophils (%) (Auto) 0.0 % Neutrophils # (Auto) 11.72 1.4-6.5 K/uL Lymphocytes # (Auto) 0.60 1.2-3.4 K/uL Monocytes # (Auto) 0.93 0.11-0.59 K/uL Eosinophils # (Auto) 0.00 0-0.5 K/uL Basophils # (Auto) 0.00 0-0.2 K/uL RDW Standard Deviation 41.6 36.4-46.3 fL RDW Coefficient of Variation 13.1 11.5-14.5 % Immature Granulocyte % (Auto) 0.2 % Immature Granulocyte # (Auto) 0.03 0.00-0.02 K/uL Sodium Level 138 136-145 mmol/L Potassium Level 4.2 3.5-5.1 mmol/L Chloride Level 105 98-107 mmol/L Carbon Dioxide Level 29 21-32 mmol/L Anion Gap 4.0 3-11 mmol/L Blood Urea Nitrogen 14 7-18 mg/dl Creatinine 1.20 0.60-1.40 mg/dl Est Creatinine Clear Calc Drug Dose 62.8 ml/min Estimated GFR () 69.6 Estimated GFR (Non- 60.1 BUN/Creatinine Ratio 11.5 10-20 Random Glucose 128 70-99 mg/dl Calcium Level 8.4 8.5-10.1 mg/dl Assessment & Plan Mild temp elevation, WBC pending Will start antibiotics Continue with sips of clears Continue ambulation
[2017-07-25] MEDS: HYDROmorphone HCL 0.5MG/ML 50 ML CASSETTE IV PRN ×3 (07:29→23:01)
[2017-07-25] MEDS: CIPROFLOXACIN / D5W 400 MG in PREMIXED IN D5W 200 ML IV SCH ×2 (08:27→21:00)
[2017-07-25] MEDS: ISOSORBIDE MONONITRATE 30 MG TABCR PO SCH (08:34)
[2017-07-25] MEDS: ROSUVASTATIN CALCIUM 20 MG TAB PO SCH (08:34)
[2017-07-25] MEDS: ASPIRIN 81 MG ECTAB PO SCH (08:35)
[2017-07-25] MEDS: METOPROLOL TARTRATE 25 MG TAB PO SCH (08:36)
[2017-07-25 08:38] LABS: HEMATOCRIT 37.8 % (42-52); HEMOGLOBIN 13.3 g/dL (14.0-18.0); IG# 0.01 K/uL (0.00-0.02); LYMPH % 5.1 %; MEAN CELL VOLUME 85.7 fL (80-100); MEAN CORPUSCULAR HEMOGLOBIN 30.2 pg (25-34); MEAN CORPUSCULAR HGB CONC 35.2 g/dl (32-36); MEAN PLATELET VOLUME 9.9 fL (7.4-10.4); MONO % 6.5 %; MONO ABS # 0.38 K/uL (0.11-0.59); NEUT % 88.2 %; NEUT ABS # 5.19 K/uL (1.4-6.5); PLATELET COUNT 137 K/uL (130-400); RED CELL DISTRIBUTION WIDTH CV 13.4 % (11.5-14.5); RED CELL DISTRIBUTION WIDTH SD 42.3 fL (36.4-46.3); WHITE BLOOD COUNT 5.88 K/uL (4.8-10.8)
[2017-07-25] MEDS ORDERED: LOSARTAN POTASSIUM 25 MG TAB PO SCH (09:00)
[2017-07-25 09:18] LABS: CALCIUM 8.5 mg/dl (8.5-10.1); CREATININE 0.99 mg/dl (0.60-1.40)
[2017-07-25] MEDS: CLINDAMYCIN IV 600 MG in DEXTROSE 5% 50ML 50 ML IV SCH ×2 (11:24→18:30)
--- NOTE | 2017-07-25 17:40 | Progress Note ---
Medicine Progress Note Date & Time of Visit: Jul 25, 2017 at 17:34. Subjective patient seen resting in bed, comfortable states surgical site feels somewhat sore but no other abdominal pain no cough, dyspnea, sputum no problems with diarrhea or with urination denies other symptoms Objective Last 8 Hrs Date Time Temp Pulse Resp B/P (MAP) Pulse Ox O2 Delivery O2 Flow Rate FiO2 07/25/17 15:41 93 Nasal Cannula 2.0 07/25/17 15:40 Nasal Cannula 2.0 07/25/17 14:42 36.8 76 16 95/56 (69) 91 Nasal Cannula 2.0 07/25/17 12:05 36.8 76 20 96/57 (70) 90 Room Air Physical Exam: General- oriented x 3, not in distress, speaks in sentences with no effort Head- atraumatic Eyes- anicteric ENT- oropharynx clear Neck- supple, no JVD, no adenopathy, no thyromegaly Lungs- clear breath sounds bilaterally Heart- regular rhythm; no murmur, normal rate Abdomen- hypoactive bowel sounds, nondistended, soft, nontender Extremities- no pretibial edema, no calf tenderness; peripheral pulses intact Neuro- alert, oriented x 3; no gross focal deficits Skin- warm & dry Laboratory Results: Last 24 Hours Test 07/25/17 08:27 White Blood Count 5.88 K/uL Red Blood Count 4.41 M/uL Hemoglobin 13.3 g/dL Hematocrit 37.8 % Mean Corpuscular Volume 85.7 fL Mean Corpuscular Hemoglobin 30.2 pg Mean Corpuscular Hemoglobin Concent 35.2 g/dl Platelet Count 137 K/uL Mean Platelet Volume 9.9 fL Neutrophils (%) (Auto) 88.2 % Lymphocytes (%) (Auto) 5.1 % Monocytes (%) (Auto) 6.5 % Eosinophils (%) (Auto) 0.0 % Basophils (%) (Auto) 0.0 % Neutrophils # (Auto) 5.19 K/uL Lymphocytes # (Auto) 0.30 K/uL Monocytes # (Auto) 0.38 K/uL Eosinophils # (Auto) 0.00 K/uL Basophils # (Auto) 0.00 K/uL RDW Standard Deviation 42.3 fL RDW Coefficient of Variation 13.4 % Immature Granulocyte % (Auto) 0.2 % Immature Granulocyte # (Auto) 0.01 K/uL Sodium Level 136 mmol/L Potassium Level 4.0 mmol/L Chloride Level 104 mmol/L Carbon Dioxide Level 24 mmol/L Anion Gap 8.0 mmol/L Blood Urea Nitrogen 13 mg/dl Creatinine 0.99 mg/dl Est Creatinine Clear Calc Drug Dose 76.1 ml/min Estimated GFR () 87.8 Estimated GFR (Non- 75.8 BUN/Creatinine Ratio 13.0 Random Glucose 123 mg/dl Calcium Level 8.5 mg/dl Assessment & Plan This is a 72yo M with a PMH of HTN, HLD, CAD and chronic sinus bradycardia who is POD#1 s/p laparoscopic assisted R hemicolectomy by Dr. Wynn. S/p R hemicolectomy: -POD#2 - BP on the lower side today likely from Dilaudid pump increase IV NSS hold Imdur, Losartan monitor - Low grade fever no clear focus of infection none this afternoon on empiric Cipro and Clinda monitor HTN: -Usually well-controlled with SBP ~110s, per patient - BP on the lower side today likely from Dilaudid pump increase IV NSS hold Imdur, Losartan monitor CAD: -Stable -on ASA Thank you for this consultation. We will follow the patient with you during their hospital stay. You can reach a member of the [facility] Hospitalist Team 08/01 via pager @ . Current Inpatient Medications: Current Inpatient Medications Medications (Trade) Dose Ordered Sig/Goldy Route Start Time Stop Time Status Last Admin Dose Admin Enoxaparin Sodium (Lovenox Inj) 40 mg Q24H SQ 07/23/17 18:00 08/22/17 17:59 07/24/17 18:25 40 MG Ondansetron HCl (Zofran Inj) 4 mg Q6H PRN IV 07/23/17 10:00 08/22/17 09:59 Naloxone HCl (Narcan Inj) 0.1 mg Q5M PRN IV 07/23/17 10:00 08/22/17 09:59 Hydromorphone HCl (Dilaudid Head Athletic Trainer/Strength Coach) 25 mg PRN PRN IV 07/23/17 10:00 08/06/17 09:59 07/25/17 14:58 25 MG Sodium Chloride 1,000 ml @ 15 mls/hr Q24H IV 07/23/17 11:15 08/22/17 11:14 07/23/17 12:24 15 MLS/HR Aspirin (Ecotrin Tab) 81 mg QAM PO 07/25/17 09:00 08/24/17 08:59 07/25/17 08:35 81 MG Isosorbide Mononitrate (Imdur Ext Rel Tab) 30 mg QAM PO 07/25/17 09:00 08/24/17 08:59 07/25/17 08:34 30 MG Losartan Potassium (coZAAR TAB) 25 mg QAM PO 07/25/17 09:00 08/24/17 08:59 07/25/17 08:35 25 MG Metoprolol Tartrate (Lopressor Tab) 25 mg QAM PO 07/25/17 09:00 08/24/17 08:59 07/25/17 08:36 25 MG Nitroglycerin (Nitrostat Tab) 0.4 mg PRN PRN UT 07/24/17 17:30 08/23/17 17:29 Rosuvastatin Calcium (Crestor Tab) 40 mg QAM PO 07/25/17 09:00 08/24/17 08:59 07/25/17 08:34 40 MG Sodium Chloride 1,000 ml @ 80 mls/hr [id number] IV 07/25/17 01:30 08/24/17 01:29 07/25/17 16:36 80 MLS/HR Ciprofloxacin/ Dextrose 400 mg/ Prmx 200 ml @ 100 mls/hr Q12 IV 07/25/17 09:00 08/04/17 23:59 07/25/17 08:27 100 MLS/HR Clindamycin Phosphate 600 mg/ Dextrose 54 ml @ 100 mls/hr Q8H IV 07/25/17 10:00 08/04/17 09:59 07/25/17 11:24 100 MLS/HR
[2017-07-25] MEDS: ENOXAPARIN 40 MG/0.4 ML SYR SQ SCH (18:31)
[2017-07-26] MEDS: CLINDAMYCIN IV 600 MG in DEXTROSE 5% 50ML 50 ML IV SCH ×3 (02:06→18:41)
[2017-07-26 03:58] VITALS: BP 114/71; PULSE 80; TEMP 37.1; O2SAT 91
[2017-07-26] MEDS: SODIUM CHLORIDE 0.9% 1000ML 1,000 ML IV SCH ×5 (04:58→19:31)
[2017-07-26] MEDS ORDERED: NURSING DECISION MEDICATION ORDER SCH (05:00)
[2017-07-26 07:06] VITALS: BP 117/68; PULSE 86; TEMP 37.2; O2SAT 91
[2017-07-26] MEDS: HYDROmorphone HCL 0.5MG/ML 50 ML CASSETTE IV PRN ×3 (07:06→22:52)
--- NOTE | 2017-07-26 07:25 | Surgery Progress Note ---
Surgery Progress Note Date of Service Jul 26, 2017. Subjective Post OP Day: 3 + diet (tolerated liquids), No bowel movement, No flatus, No nausea, No vomiting Objective Vital Signs: Date Time Temp Pulse Resp B/P (MAP) Pulse Ox O2 Delivery O2 Flow Rate FiO2 07/26/17 07:06 37.2 86 18 117/68 (84) 91 Room Air 07/26/17 03:58 37.1 80 16 114/71 (85) 91 Room Air 07/25/17 23:20 Room Air 07/25/17 22:50 36.5 76 16 119/66 (83) 93 Room Air 07/25/17 20:14 37.1 71 18 112/65 (81) 94 Room Air 07/25/17 18:46 94 Room Air 07/25/17 18:31 72 110/72 (85) 94 Nasal Cannula 2.0 07/25/17 15:41 93 Nasal Cannula 2.0 07/25/17 15:40 Nasal Cannula 2.0 07/25/17 14:42 36.8 76 16 95/56 (69) 91 Nasal Cannula 2.0 07/25/17 12:05 36.8 76 20 96/57 (70) 90 Room Air 07/25/17 08:32 82 121/66 (84) 07/25/17 07:35 36.9 07/25/17 07:30 Room Air Respiratory/Chest: lungs clear Abdomen: normal bowel sounds, non tender Extremities: normal range of motion Laboratory Results: Results Past 24 Hours Test 07/25/17 08:27 Range/Units White Blood Count 5.88 4.8-10.8 K/uL Red Blood Count 4.41 4.7-6.1 M/uL Hemoglobin 13.3 14.0-18.0 g/dL Hematocrit 37.8 42-52 % Mean Corpuscular Volume 85.7 80-100 fL Mean Corpuscular Hemoglobin 30.2 25-34 pg Mean Corpuscular Hemoglobin Concent 35.2 32-36 g/dl Platelet Count 137 130-400 K/uL Mean Platelet Volume 9.9 7.4-10.4 fL Neutrophils (%) (Auto) 88.2 % Lymphocytes (%) (Auto) 5.1 % Monocytes (%) (Auto) 6.5 % Eosinophils (%) (Auto) 0.0 % Basophils (%) (Auto) 0.0 % Neutrophils # (Auto) 5.19 1.4-6.5 K/uL Lymphocytes # (Auto) 0.30 1.2-3.4 K/uL Monocytes # (Auto) 0.38 0.11-0.59 K/uL Eosinophils # (Auto) 0.00 0-0.5 K/uL Basophils # (Auto) 0.00 0-0.2 K/uL RDW Standard Deviation 42.3 36.4-46.3 fL RDW Coefficient of Variation 13.4 11.5-14.5 % Immature Granulocyte % (Auto) 0.2 % Immature Granulocyte # (Auto) 0.01 0.00-0.02 K/uL Sodium Level 136 136-145 mmol/L Potassium Level 4.0 3.5-5.1 mmol/L Chloride Level 104 98-107 mmol/L Carbon Dioxide Level 24 21-32 mmol/L Anion Gap 8.0 3-11 mmol/L Blood Urea Nitrogen 13 7-18 mg/dl Creatinine 0.99 0.60-1.40 mg/dl Est Creatinine Clear Calc Drug Dose 76.1 ml/min Estimated GFR () 87.8 Estimated GFR (Non- 75.8 BUN/Creatinine Ratio 13.0 10-20 Random Glucose 123 70-99 mg/dl Calcium Level 8.5 8.5-10.1 mg/dl Assessment & Plan No temp elevation, WBC normal Continue antibiotics Continue with sips of clears, if he begins to pass flatus can advance Pathology noted and discussed with patient
[2017-07-26] MEDS: CIPROFLOXACIN / D5W 400 MG in PREMIXED IN D5W 200 ML IV SCH ×2 (09:06→21:25)
[2017-07-26] MEDS: ROSUVASTATIN CALCIUM 20 MG TAB PO SCH (09:06)
[2017-07-26] MEDS: ASPIRIN 81 MG ECTAB PO SCH (09:06)
[2017-07-26] MEDS: ISOSORBIDE MONONITRATE 30 MG TABCR PO SCH (09:06)
[2017-07-26] MEDS: METOPROLOL TARTRATE 25 MG TAB PO SCH (09:06)
[2017-07-26 10:55] VITALS: BP 107/66; PULSE 80; TEMP 37; O2SAT 93
[2017-07-26] MEDS ORDERED: NURSING VERBAL MED ORDER ONE (15:00)
[2017-07-26 15:32] VITALS: BP 92/48; PULSE 76; TEMP 36.7; O2SAT 91
--- NOTE | 2017-07-26 16:59 | Progress Note ---
Medicine Progress Note Date & Time of Visit: Jul 26, 2017 at 16:55. Subjective patient seen resting in bed, appears comfortable has some tenderness on RLQ today no nausea positive balance for urine output but not retaining urine denies headache, dizziness, chest pain, dyspnea, palpitations no other symptoms Objective Last 8 Hrs Date Time Temp Pulse Resp B/P (MAP) Pulse Ox O2 Delivery O2 Flow Rate FiO2 07/26/17 15:32 36.7 76 18 92/48 (63) 91 Room Air 07/26/17 10:55 37.0 80 18 107/66 (80) 93 Room Air Physical Exam: General- oriented x 3, not in distress, speaks in sentences with no effort Eyes- anicteric Neck- supple, no JVD Lungs- clear to auscultation bilaterally Heart- regular rhythm; no murmur, normal rate Abdomen- hypoactive bowel sounds, nondistended, soft,mild RLQ tenderness Extremities- no pretibial edema, no calf tenderness; peripheral pulses intact Neuro- alert, oriented x 3; no gross focal deficits Skin- warm & dry Assessment & Plan This is a 72yo M with a PMH of HTN, HLD, CAD and chronic sinus bradycardia who is POD#1 s/p laparoscopic assisted R hemicolectomy by Dr. Wynn. S/p R hemicolectomy: -POD#3 - BP still on the lower side likely from Dilaudid pump hold Imdur, Losartan further increase IV NSS monitor - Low grade fever afebrile so far no clear focus of infection on empiric Cipro and Clinda monitor Poor Urine Output - no retention per bladder scan check PRP fluids increased monitor HTN: -Usually well-controlled with SBP ~110s, per patient - BP still on the lower side likely from Dilaudid pump hold Imdur, Losartan further increase IV NSS monitor CAD: - denies cardiac symptoms -on ASA Thank you for this consultation. We will follow the patient with you during their hospital stay. You can reach a member of the [facility] Hospitalist Team 08/01 via pager @ . Current Inpatient Medications: Current Inpatient Medications Medications (Trade) Dose Ordered Sig/Goldy Route Start Time Stop Time Status Last Admin Dose Admin Enoxaparin Sodium (Lovenox Inj) 40 mg Q24H SQ 07/23/17 18:00 08/22/17 17:59 07/25/17 18:31 40 MG Ondansetron HCl (Zofran Inj) 4 mg Q6H PRN IV 07/23/17 10:00 08/22/17 09:59 Naloxone HCl (Narcan Inj) 0.1 mg Q5M PRN IV 07/23/17 10:00 08/22/17 09:59 Hydromorphone HCl (Dilaudid Marking Clerk) 25 mg PRN PRN IV 07/23/17 10:00 08/06/17 09:59 07/26/17 15:02 25 MG Sodium Chloride 1,000 ml @ 15 mls/hr Q24H IV 07/23/17 11:15 08/22/17 11:14 07/23/17 12:24 15 MLS/HR Aspirin (Ecotrin Tab) 81 mg QAM PO 07/25/17 09:00 08/24/17 08:59 07/26/17 09:06 81 MG Metoprolol Tartrate (Lopressor Tab) 25 mg QAM PO 07/25/17 09:00 08/24/17 08:59 07/26/17 09:06 25 MG Nitroglycerin (Nitrostat Tab) 0.4 mg PRN PRN UT 07/24/17 17:30 08/23/17 17:29 Rosuvastatin Calcium (Crestor Tab) 40 mg QAM PO 07/25/17 09:00 08/24/17 08:59 07/26/17 09:06 40 MG Sodium Chloride 1,000 ml @ 125 mls/hr Q8H IV 07/25/17 01:30 08/24/17 01:29 07/26/17 15:40 125 MLS/HR Ciprofloxacin/ Dextrose 400 mg/ Prmx 200 ml @ 100 mls/hr Q12 IV 07/25/17 09:00 08/04/17 23:59 07/26/17 09:06 100 MLS/HR Clindamycin Phosphate 600 mg/ Dextrose 54 ml @ 100 mls/hr Q8H IV 07/25/17 10:00 08/04/17 09:59 07/26/17 11:26 100 MLS/HR
[2017-07-26 17:21] LABS: BASO % 0.1 %; BASO ABS # 0.01 K/uL (0-0.2); EOS % 0.2 %; EOS ABS # 0.02 K/uL (0-0.5); HEMATOCRIT 35.5 % (42-52); HEMOGLOBIN 12.2 g/dL (14.0-18.0); IG# 0.05 K/uL (0.00-0.02); LYMPH % 5.5 %; LYMPH ABS # 0.49 K/uL (1.2-3.4); MEAN CELL VOLUME 85.7 fL (80-100); MEAN CORPUSCULAR HEMOGLOBIN 29.5 pg (25-34); MEAN CORPUSCULAR HGB CONC 34.4 g/dl (32-36); MEAN PLATELET VOLUME 9.9 fL (7.4-10.4); MONO % 6.5 %; MONO ABS # 0.58 K/uL (0.11-0.59); NEUT % 87.1 %; NEUT ABS # 7.73 K/uL (1.4-6.5); PLATELET COUNT 184 K/uL (130-400); RED CELL DISTRIBUTION WIDTH CV 13.4 % (11.5-14.5); RED CELL DISTRIBUTION WIDTH SD 42.3 fL (36.4-46.3); WHITE BLOOD COUNT 8.88 K/uL (4.8-10.8)
[2017-07-26 17:41] LABS: CALCIUM 8.3 mg/dl (8.5-10.1); CREATININE 1.38 mg/dl (0.60-1.40); POTASSIUM 4.2 mmol/L (3.5-5.1)
[2017-07-26 18:39] VITALS: BP 112/62; PULSE 82; TEMP 37.7; O2SAT 93
[2017-07-26] MEDS: ENOXAPARIN 40 MG/0.4 ML SYR SQ SCH (18:42)
[2017-07-26 22:58] VITALS: BP 122/63; PULSE 79; TEMP 37.2; O2SAT 93
[2017-07-27] MEDS: CLINDAMYCIN IV 600 MG in DEXTROSE 5% 50ML 50 ML IV SCH ×3 (02:00→18:33)
[2017-07-27] MEDS: SODIUM CHLORIDE 0.9% 1000ML 1,000 ML IV SCH ×3 (02:00→11:48)
[2017-07-27 03:22] VITALS: BP 123/63; PULSE 81; TEMP 37.8; O2SAT 91
[2017-07-27] MEDS: HYDROmorphone HCL 0.5MG/ML 50 ML CASSETTE IV PRN (06:46)
[2017-07-27] MEDS ORDERED: BISACODYL 10 MG SUPP PR STA (07:29)
--- NOTE | 2017-07-27 07:29 | Surgery Progress Note ---
Surgery Progress Note Date of Service Jul 27, 2017. Subjective Post OP Day: 4 No bowel movement, No flatus, No nausea, No vomiting Abdominal pain less Objective Vital Signs: Date Time Temp Pulse Resp B/P (MAP) Pulse Ox O2 Delivery O2 Flow Rate FiO2 07/27/17 03:22 37.8 81 17 123/63 (83) 91 Room Air 07/26/17 22:58 37.2 79 16 122/63 (82) 93 Room Air 07/26/17 18:39 37.7 82 20 112/62 (79) 93 Room Air 07/26/17 15:32 36.7 76 18 92/48 (63) 91 Room Air 07/26/17 15:30 Room Air 07/26/17 10:55 37.0 80 18 107/66 (80) 93 Room Air 07/26/17 07:45 Room Air Abdomen: soft, + abnormal bowel sounds (Decreased), + distended (mild), + pertinent finding (developing ecchymosis along vertical midline incision) Laboratory Results: Results Past 24 Hours Test 07/26/17 17:10 07/27/17 04:44 Range/Units White Blood Count 8.88 4.8-10.8 K/uL Red Blood Count 4.14 4.7-6.1 M/uL Hemoglobin 12.2 14.0-18.0 g/dL Hematocrit 35.5 42-52 % Mean Corpuscular Volume 85.7 80-100 fL Mean Corpuscular Hemoglobin 29.5 25-34 pg Mean Corpuscular Hemoglobin Concent 34.4 32-36 g/dl Platelet Count 184 130-400 K/uL Mean Platelet Volume 9.9 7.4-10.4 fL Neutrophils (%) (Auto) 87.1 % Lymphocytes (%) (Auto) 5.5 % Monocytes (%) (Auto) 6.5 % Eosinophils (%) (Auto) 0.2 % Basophils (%) (Auto) 0.1 % Neutrophils # (Auto) 7.73 1.4-6.5 K/uL Lymphocytes # (Auto) 0.49 1.2-3.4 K/uL Monocytes # (Auto) 0.58 0.11-0.59 K/uL Eosinophils # (Auto) 0.02 0-0.5 K/uL Basophils # (Auto) 0.01 0-0.2 K/uL RDW Standard Deviation 42.3 36.4-46.3 fL RDW Coefficient of Variation 13.4 11.5-14.5 % Immature Granulocyte % (Auto) 0.6 % Immature Granulocyte # (Auto) 0.05 0.00-0.02 K/uL Sodium Level 135 136-145 mmol/L Potassium Level 4.2 3.5-5.1 mmol/L Chloride Level 104 98-107 mmol/L Carbon Dioxide Level 25 21-32 mmol/L Anion Gap 7.0 3-11 mmol/L Blood Urea Nitrogen 24 7-18 mg/dl Creatinine 1.38 0.60-1.40 mg/dl Est Creatinine Clear Calc Drug Dose 54.6 ml/min Estimated GFR () 58.8 Estimated GFR (Non- 50.7 BUN/Creatinine Ratio 17.7 10-20 Random Glucose 108 70-99 mg/dl Calcium Level 8.3 8.5-10.1 mg/dl Assessment & Plan Mild temp elevation, WBC normal Continue antibiotics No flatus as yet but will begin to clear liquid Dulcolax suppository Pathology noted and discussed with patient yesterday No temp elevation, WBC normal Continue antibiotics Continue with sips of clears, if he begins to pass flatus can advance Continue to ambulate Pathology noted and discussed with patient
--- NOTE | 2017-07-27 07:34 | Discharge Instructions ---
Discharge Instructions Date of Service Jul 27, 2017. 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 Instructions / Follow-Up Instructions / Follow-Up ACTIVITY RECOMMENDATIONS: * Walk as much as possible. * No heavy lifting (>10 lbs.) for 6 weeks. SPECIAL CARE INSTRUCTIONS: * May shower. Let water run over area and pat dry. * Call the surgeon's office with any questions or concerns - (ex. temperature higher than 101 degrees F, excessive bleeding or pain). MEDICATIONS: Resume previous medications unless instructed otherwise by your surgeon. * Ibuprofen 600 mg every 6 hours with food * Percocet 1 every 4 hours, as needed for pain FOLLOW UP VISIT: If not already scheduled, please call the office to schedule a one week follow- up appointment. Office number Current Hospital Diet Patient's current hospital diet: Clear Liquid Diet Discharge Diet Recommended Diet: Regular Diet Procedures Procedures Performed: Laparoscopic Assisted to Open Right Hemicolectomy Pending Studies Studies pending at discharge: no Medical Emergencies . Who to Call and When: Medical Emergencies: If at any time you feel your situation is an emergency, please call 911 immediately. . Non-Emergent Contact Non-Emergency issues call your: Primary Care Provider, Surgeon Call Non-Emergent contact if: your pain is worsening, wound has increased redness, wound has increased pain . "Provider Documentation" section prepared by Zak Wynn. . VTE Core Measure Inpt VTE Proph given/why not?: Enoxaparin (Lovenox)SQ
[2017-07-27] MEDS: CIPROFLOXACIN / D5W 400 MG in PREMIXED IN D5W 200 ML IV SCH ×2 (07:46→21:14)
[2017-07-27] MEDS: METOPROLOL TARTRATE 25 MG TAB PO SCH (07:47)
[2017-07-27] MEDS: ASPIRIN 81 MG ECTAB PO SCH (07:47)
[2017-07-27] MEDS: ROSUVASTATIN CALCIUM 20 MG TAB PO SCH (07:47)
[2017-07-27 07:53] VITALS: BP 146/74; PULSE 82; TEMP 37; O2SAT 97
[2017-07-27 08:02] LABS: BASO % 0.1 %; BASO ABS # 0.01 K/uL (0-0.2); EOS % 0.8 %; EOS ABS # 0.08 K/uL (0-0.5); HEMATOCRIT 35.3 % (42-52); HEMOGLOBIN 12.4 g/dL (14.0-18.0); IG# 0.09 K/uL (0.00-0.02); LYMPH % 5.7 %; LYMPH ABS # 0.59 K/uL (1.2-3.4); MEAN CELL VOLUME 85.7 fL (80-100); MEAN CORPUSCULAR HEMOGLOBIN 30.1 pg (25-34); MEAN CORPUSCULAR HGB CONC 35.1 g/dl (32-36); MEAN PLATELET VOLUME 9.8 fL (7.4-10.4); MONO % 6.4 %; MONO ABS # 0.66 K/uL (0.11-0.59); NEUT % 86.1 %; NEUT ABS # 8.92 K/uL (1.4-6.5); PLATELET COUNT 185 K/uL (130-400); RED CELL DISTRIBUTION WIDTH CV 13.6 % (11.5-14.5); RED CELL DISTRIBUTION WIDTH SD 42.6 fL (36.4-46.3); WHITE BLOOD COUNT 10.35 K/uL (4.8-10.8)
[2017-07-27 08:17] VITALS: O2SAT 97
[2017-07-27 08:38] LABS: CALCIUM 8.2 mg/dl (8.5-10.1); CREATININE 1.23 mg/dl (0.60-1.40); POTASSIUM 3.9 mmol/L (3.5-5.1)
[2017-07-27 12:02] VITALS: BP 108/58; PULSE 83; TEMP 37; O2SAT 96
--- NOTE | 2017-07-27 14:13 | Hospitalist Progress Note ---
Hospitalist Progress Note Date of Service Jul 27, 2017. (Ela Whitman CRNP) Subjective Patient seen and examined. Sitting up in bed. Reports taking several laps around the halls today. Denies pain as rest but does have some incisional pain with movement. Good appetite, no nausea or vomiting. Still no flatus or BM. Denies chest pain, shortness of breath, lightheadedness, dizziness. (Ela Whitman CRNP) Objective Vital Signs Last Vital Signs Documentation Date Time Temp Pulse Resp B/P (MAP) Pulse Ox O2 Delivery O2 Flow Rate FiO2 07/27/17 12:02 37.0 83 18 108/58 (75) 96 Room Air 07/25/17 18:31 2.0 (Ela Whitman CRNP) Physical Exam General Appearance: WD/WN, no apparent distress Respiratory/Chest: lungs clear, normal breath sounds, no respiratory distress Cardiovascular: regular rate, rhythm, no edema, + normal peripheral pulses Abdomen: + abnormal bowel sounds (hypoactive), + distended (semi firm), + tenderness (around incisional site), + pertinent finding (abdominal incisions intact with janey - no surrounding erythema or drainage) Neurologic/Psychiatric: alert, oriented x 3 (Ela Whitman CRNP) Laboratory Results Item Value Date Time White Blood Count 10.35 K/uL 07/27/17 0749 Hemoglobin 12.4 g/dL L 07/27/17 0749 Hematocrit 35.3 % L 07/27/17 0749 Platelet Count 185 K/uL 07/27/17 0749 Sodium Level 134 mmol/L L 07/27/17 0744 Potassium Level 3.9 mmol/L 07/27/17 0744 Blood Urea Nitrogen 20 mg/dl H 07/27/17 0744 Creatinine 1.23 mg/dl 07/27/17 0744 (Ela Whitman CRNP) Assessment and Plan S/P RIGHT HEMICOLECTOMY - POD # 4 - management as per general surgery - one low grade fever over night - on Cipro and Clindamycin; no obvious source of infection - BPs had been running low - Imdur and Losartan on hold, receiving IVF - BP improved; 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 likely contributing to low BPs - still no flatus or BM - on clear liquids - will discuss with surgery regarding d/c'ing 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
[2017-07-27] MEDS ORDERED: HYDROmorphone INJ 0.5 MG/0.5 ML SYR IV PRN (14:30)
[2017-07-27] MEDS ORDERED: NURSING VERBAL MED ORDER ONE (14:45)
[2017-07-27 15:14] VITALS: BP 110/67; PULSE 72; TEMP 36.7; O2SAT 92
[2017-07-27] MEDS ORDERED: MoRPHine SULFATE 2 MG/ML CARP IV PRN ×2 (17:00)
[2017-07-27] MEDS: ENOXAPARIN 40 MG/0.4 ML SYR SQ SCH (18:30)
[2017-07-27] MEDS ORDERED: METHYLNALTREXONE BROMIDE INJ 12 MG/0.6 ML SYR SQ SCH (22:30)
[2017-07-27 22:57] VITALS: BP 138/71; PULSE 77; TEMP 37.1; O2SAT 93
[2017-07-27] MEDS: OXYCODONE/ACETAMINOPHEN 5-325 TAB PO PRN ×2 (23:12→23:53)
[2017-07-28] MEDS: CLINDAMYCIN IV 600 MG in DEXTROSE 5% 50ML 50 ML IV SCH ×3 (02:08→17:45)
--- NOTE | 2017-07-28 04:26 | Surgery Progress Note ---
Surgery Progress Note Date of Service Jul 28, 2017. Subjective Post OP Day: 5 + feeling well, + ambulating, + flatus (minimal), + diet (clears), No bowel movement, No nausea, No vomiting Objective Vital Signs: Date Time Temp Pulse Resp B/P (MAP) Pulse Ox O2 Delivery O2 Flow Rate FiO2 07/27/17 23:45 Room Air 07/27/17 22:57 37.1 77 18 138/71 (93) 93 Room Air 07/27/17 17:04 Room Air 07/27/17 15:14 36.7 72 18 110/67 (81) 92 Room Air 07/27/17 12:02 37.0 83 18 108/58 (75) 96 Room Air 07/27/17 08:17 97 Room Air 07/27/17 08:00 Room Air 07/27/17 07:53 37.0 82 18 146/74 (98) 97 Room Air General Appearance: WD/WN, no apparent distress Head: normocephalic, atraumatic Neck: supple, trachea midline Respiratory/Chest: chest non-tender, lungs clear Cardiovascular: regular rate, rhythm, no gallop, no murmur Abdomen: normal bowel sounds (good), soft, + distended, + tenderness Incision(s): clean, dry, intact Extremities: non-tender, no pedal edema Laboratory Results: Results Past 24 Hours Test 07/27/17 07:44 07/27/17 07:49 Range/Units Sodium Level 134 136-145 mmol/L Potassium Level 3.9 3.5-5.1 mmol/L Chloride Level 103 98-107 mmol/L Carbon Dioxide Level 23 21-32 mmol/L Anion Gap 8.0 3-11 mmol/L Blood Urea Nitrogen 20 7-18 mg/dl Creatinine 1.23 0.60-1.40 mg/dl Est Creatinine Clear Calc Drug Dose 61.2 ml/min Estimated GFR () 67.6 Estimated GFR (Non- 58.3 BUN/Creatinine Ratio 16.1 10-20 Random Glucose 95 70-99 mg/dl Calcium Level 8.2 8.5-10.1 mg/dl White Blood Count 10.35 4.8-10.8 K/uL Red Blood Count 4.12 4.7-6.1 M/uL Hemoglobin 12.4 14.0-18.0 g/dL Hematocrit 35.3 42-52 % Mean Corpuscular Volume 85.7 80-100 fL Mean Corpuscular Hemoglobin 30.1 25-34 pg Mean Corpuscular Hemoglobin Concent 35.1 32-36 g/dl Platelet Count 185 130-400 K/uL Mean Platelet Volume 9.8 7.4-10.4 fL Neutrophils (%) (Auto) 86.1 % Lymphocytes (%) (Auto) 5.7 % Monocytes (%) (Auto) 6.4 % Eosinophils (%) (Auto) 0.8 % Basophils (%) (Auto) 0.1 % Neutrophils # (Auto) 8.92 1.4-6.5 K/uL Lymphocytes # (Auto) 0.59 1.2-3.4 K/uL Monocytes # (Auto) 0.66 0.11-0.59 K/uL Eosinophils # (Auto) 0.08 0-0.5 K/uL Basophils # (Auto) 0.01 0-0.2 K/uL RDW Standard Deviation 42.6 36.4-46.3 fL RDW Coefficient of Variation 13.6 11.5-14.5 % Immature Granulocyte % (Auto) 0.9 % Immature Granulocyte # (Auto) 0.09 0.00-0.02 K/uL Assessment & Plan s/p lap R colon -await bowel function to advance diet -ambulate -slow progress
[2017-07-28 07:04] VITALS: BP 132/74; PULSE 93; TEMP 36.4; O2SAT 93
[2017-07-28 07:19] LABS: HEMATOCRIT 32.2 % (42-52); MEAN CELL VOLUME 84.7 fL (80-100); MEAN CORPUSCULAR HEMOGLOBIN 28.9 pg (25-34); MEAN CORPUSCULAR HGB CONC 34.2 g/dl (32-36); MEAN PLATELET VOLUME 9.5 fL (7.4-10.4); PLATELET COUNT 185 K/uL (130-400); RED CELL DISTRIBUTION WIDTH CV 13.6 % (11.5-14.5); WHITE BLOOD COUNT 9.36 K/uL (4.8-10.8)
[2017-07-28 07:49] LABS: CALCIUM 8.1 mg/dl (8.5-10.1); CREATININE 1.2 mg/dl (0.60-1.40); POTASSIUM 3.6 mmol/L (3.5-5.1)
[2017-07-28 08:00] VITALS: O2SAT 93
[2017-07-28] MEDS: ROSUVASTATIN CALCIUM 20 MG TAB PO SCH (08:06)
[2017-07-28] MEDS: CIPROFLOXACIN / D5W 400 MG in PREMIXED IN D5W 200 ML IV SCH ×2 (08:06→20:45)
[2017-07-28] MEDS: ASPIRIN 81 MG ECTAB PO SCH (08:06)
[2017-07-28] MEDS: METOPROLOL TARTRATE 25 MG TAB PO SCH (08:06)
--- NOTE | 2017-07-28 09:02 | DIAGNOSTIC IMAGING REPORT ---
ABDOMEN 2VIEW W/PA CHEST RTN CLINICAL HISTORY: 72 years-old Male presenting with post op illeus . TECHNIQUE: PA view of the chest and supine and upright views of the abdomen were obtained. COMPARISON: 09/10/2016. FINDINGS: Atherosclerosis of the aortic arch. Cardiac silhouette normal in size. Bandlike opacity at the left lung base. No other focal opacity. No large effusion or pneumothorax. Skin janye noted in the left mid and lower abdomen as well as the midline. Anastomotic suture lines evident in the right abdomen. Nonobstructive bowel gas pattern. No gross pneumoperitoneum. Allowing for bowel gas and stool, calcification projects over the lower pole of the right kidney. Left pelvic phleboliths noted. Degenerative changes of the spine. Degenerative changes of the bilateral hips, right greater than left. IMPRESSION: 1. Minimal left basilar atelectasis. No convincing evidence of acute cardiopulmonary disease. 2. No radiographic evidence of obstruction or ileus. 3. Postsurgical changes of the abdomen. 4. Right renal calculus. Electronically signed by: Papi Diaz M.D. 07/28/2017 9:01 AM Dictated Date/Time: 07/28/2017 8:59 AM
[2017-07-28] MEDS: OXYCODONE/ACETAMINOPHEN 5-325 TAB PO PRN (09:56)
[2017-07-28 14:57] VITALS: BP 112/60; PULSE 66; TEMP 36.6; O2SAT 94
[2017-07-28] MEDS: ENOXAPARIN 40 MG/0.4 ML SYR SQ SCH (17:45)
--- NOTE | 2017-07-28 18:54 | Progress Note ---
Medicine Progress Note Date & Time of Visit: Jul 28, 2017 at 18:51. Subjective resting, comfortable no BM /flatus yet denies dizziness, chest pain, dyspnea abdominal pain about the same no other symptoms Objective Last 8 Hrs Date Time Temp Pulse Resp B/P (MAP) Pulse Ox O2 Delivery O2 Flow Rate FiO2 07/28/17 15:45 Room Air 07/28/17 14:57 36.6 66 19 112/60 (77) 94 Room Air Physical Exam: General- oriented x 3, not in distress, speaks in sentences with no effort Neck- no JVD Lungs- clear breath sounds bilaterally Heart- regular rhythm; no murmur, normal rate Abdomen- hypoactive bowel sounds, nondistended, soft,mild tenderness Extremities- no pretibial edema, no calf tenderness Neuro- alert, oriented x 3; no gross focal deficits Skin- warm & dry Laboratory Results: Last 24 Hours Test 07/28/17 07:00 White Blood Count 9.36 K/uL Red Blood Count 3.80 M/uL Hemoglobin 11.0 g/dL Hematocrit 32.2 % Mean Corpuscular Volume 84.7 fL Mean Corpuscular Hemoglobin 28.9 pg Mean Corpuscular Hemoglobin Concent 34.2 g/dl RDW Standard Deviation 42.0 fL RDW Coefficient of Variation 13.6 % Platelet Count 185 K/uL Mean Platelet Volume 9.5 fL Sodium Level 135 mmol/L Potassium Level 3.6 mmol/L Chloride Level 104 mmol/L Carbon Dioxide Level 27 mmol/L Anion Gap 4.0 mmol/L Blood Urea Nitrogen 15 mg/dl Creatinine 1.20 mg/dl Est Creatinine Clear Calc Drug Dose 62.8 ml/min Estimated GFR () 69.6 Estimated GFR (Non- 60.1 BUN/Creatinine Ratio 12.3 Random Glucose 109 mg/dl Calcium Level 8.1 mg/dl Assessment & Plan This is a 72yo M with a PMH of HTN, HLD, CAD and chronic sinus bradycardia who is POD#1 s/p laparoscopic assisted R hemicolectomy by Dr. Wynn. S/p R hemicolectomy: -POD#4 - BP stable hold Imdur, Losartan monitor - Low grade fever episode remains afebrile no clear focus of infection on empiric Cipro and Clinda monitor - no flatus, BM yet Relistor tomorrow HTN: - Usually well-controlled with SBP ~110s, per patient - BP was on the lower side hold Imdur, Losartan continue Metoprolol BP improving CAD: - denies cardiac symptoms - on ASA Thank you for this consultation. We will follow the patient with you during their hospital stay. You can reach a member of the [facility] Hospitalist Team 08/01 via pager @ [phone]. Current Inpatient Medications: Current Inpatient Medications Medications (Trade) Dose Ordered Sig/Goldy Route Start Time Stop Time Status Last Admin Dose Admin Enoxaparin Sodium (Lovenox Inj) 40 mg Q24H SQ 07/23/17 18:00 08/22/17 17:59 07/28/17 17:45 40 MG Ondansetron HCl (Zofran Inj) 4 mg Q6H PRN IV 07/23/17 10:00 08/22/17 09:59 Aspirin (Ecotrin Tab) 81 mg QAM PO 07/25/17 09:00 08/24/17 08:59 07/28/17 08:06 81 MG Metoprolol Tartrate (Lopressor Tab) 25 mg QAM PO 07/25/17 09:00 08/24/17 08:59 07/28/17 08:06 25 MG Nitroglycerin (Nitrostat Tab) 0.4 mg PRN PRN UT 07/24/17 17:30 08/23/17 17:29 Rosuvastatin Calcium (Crestor Tab) 40 mg QAM PO 07/25/17 09:00 08/24/17 08:59 07/28/17 08:06 40 MG Ciprofloxacin/ Dextrose 400 mg/ Prmx 200 ml @ 100 mls/hr Q12 IV 07/25/17 09:00 08/04/17 23:59 07/28/17 08:06 100 MLS/HR Clindamycin Phosphate 600 mg/ Dextrose 54 ml @ 100 mls/hr Q8H IV 07/25/17 10:00 08/04/17 09:59 07/28/17 17:45 100 MLS/HR Hydromorphone HCl (Dilaudid Inj) 0.25 mg Q4H PRN IV 07/27/17 14:30 08/10/17 14:29 Oxycodone/ Acetaminophen (Percocet 5-325mg Tab) 1 tab Q4H PRN PO 07/27/17 17:00 08/10/17 16:59 07/27/17 23:53 1 TAB Oxycodone/ Acetaminophen (Percocet 5-325mg Tab) 2 tab Q4H PRN PO 07/27/17 17:00 08/10/17 16:59 07/28/17 09:56 2 TAB Morphine Sulfate (MoRPHine SULFATE INJ) 1 mg Q2H PRN IV 07/27/17 17:00 08/10/17 16:59 Morphine Sulfate (MoRPHine SULFATE INJ) 2 mg Q2H PRN IV 07/27/17 17:00 08/10/17 16:59 Methylnaltrexone Isabella (Relistor Inj) 12 mg Q2D SQ 07/27/17 22:30 08/26/17 22:29 07/27/17 23:46 12 MG
[2017-07-28 22:54] VITALS: BP 112/76; PULSE 69; TEMP 36.8; O2SAT 96
[2017-07-29] MEDS: CLINDAMYCIN IV 600 MG in DEXTROSE 5% 50ML 50 ML IV SCH ×3 (02:25→16:57)
[2017-07-29 07:04] LABS: BASO % 0.2 %; BASO ABS # 0.02 K/uL (0-0.2); EOS % 1.4 %; EOS ABS # 0.13 K/uL (0-0.5); HEMATOCRIT 30.9 % (42-52); HEMOGLOBIN 11.1 g/dL (14.0-18.0); IG# 0.34 K/uL (0.00-0.02); LYMPH % 5.5 %; LYMPH ABS # 0.52 K/uL (1.2-3.4); MEAN CELL VOLUME 83.5 fL (80-100); MEAN CORPUSCULAR HGB CONC 35.9 g/dl (32-36); MEAN PLATELET VOLUME 9.6 fL (7.4-10.4); MONO % 10.1 %; MONO ABS # 0.95 K/uL (0.11-0.59); NEUT % 79.2 %; NEUT ABS # 7.43 K/uL (1.4-6.5); PLATELET COUNT 212 K/uL (130-400); RED CELL DISTRIBUTION WIDTH CV 13.7 % (11.5-14.5); RED CELL DISTRIBUTION WIDTH SD 42.1 fL (36.4-46.3); WHITE BLOOD COUNT 9.39 K/uL (4.8-10.8)
[2017-07-29 07:39] LABS: CALCIUM 8.2 mg/dl (8.5-10.1); CREATININE 1.08 mg/dl (0.60-1.40); POTASSIUM 3.5 mmol/L (3.5-5.1)
[2017-07-29] MEDS: ONDANSETRON INJ 2 MG/ML 2 ML VIAL IV PRN ×3 (07:59→23:59)
[2017-07-29 08:06] VITALS: BP 157/71; PULSE 71; TEMP 36.8; O2SAT 97
--- NOTE | 2017-07-29 09:13 | Surgery Progress Note ---
Surgery Progress Note Date of Service Jul 29, 2017. Subjective Post OP Day: 6 + complaints (some nausea), + ambulating, + bowel movement (multiple), + flatus , + pain controlled, + nausea, + vomiting (one episode last PM), + diet (clears) Objective Vital Signs: Date Time Temp Pulse Resp B/P (MAP) Pulse Ox O2 Delivery O2 Flow Rate FiO2 07/29/17 08:06 36.8 71 19 157/71 (99) 97 Room Air 07/29/17 07:45 Room Air 07/28/17 23:40 Room Air 07/28/17 22:54 36.8 69 16 112/76 (88) 96 Room Air 07/28/17 15:45 Room Air 07/28/17 14:57 36.6 66 19 112/60 (77) 94 Room Air General Appearance: WD/WN, no apparent distress Head: normocephalic, atraumatic Neck: supple, trachea midline Respiratory/Chest: chest non-tender, lungs clear Cardiovascular: regular rate, rhythm, no gallop, no murmur Abdomen: normal bowel sounds, soft, + distended, + tenderness (mild) Incision(s): clean, dry, intact Extremities: non-tender, no pedal edema Laboratory Results: Results Past 24 Hours Test 07/29/17 06:36 Range/Units White Blood Count 9.39 4.8-10.8 K/uL Red Blood Count 3.70 4.7-6.1 M/uL Hemoglobin 11.1 14.0-18.0 g/dL Hematocrit 30.9 42-52 % Mean Corpuscular Volume 83.5 80-100 fL Mean Corpuscular Hemoglobin 30.0 25-34 pg Mean Corpuscular Hemoglobin Concent 35.9 32-36 g/dl Platelet Count 212 130-400 K/uL Mean Platelet Volume 9.6 7.4-10.4 fL Neutrophils (%) (Auto) 79.2 % Lymphocytes (%) (Auto) 5.5 % Monocytes (%) (Auto) 10.1 % Eosinophils (%) (Auto) 1.4 % Basophils (%) (Auto) 0.2 % Neutrophils # (Auto) 7.43 1.4-6.5 K/uL Lymphocytes # (Auto) 0.52 1.2-3.4 K/uL Monocytes # (Auto) 0.95 0.11-0.59 K/uL Eosinophils # (Auto) 0.13 0-0.5 K/uL Basophils # (Auto) 0.02 0-0.2 K/uL RDW Standard Deviation 42.1 36.4-46.3 fL RDW Coefficient of Variation 13.7 11.5-14.5 % Immature Granulocyte % (Auto) 3.6 % Immature Granulocyte # (Auto) 0.34 0.00-0.02 K/uL Sodium Level 137 136-145 mmol/L Potassium Level 3.5 3.5-5.1 mmol/L Chloride Level 103 98-107 mmol/L Carbon Dioxide Level 25 21-32 mmol/L Anion Gap 9.0 3-11 mmol/L Blood Urea Nitrogen 13 7-18 mg/dl Creatinine 1.08 0.60-1.40 mg/dl Est Creatinine Clear Calc Drug Dose 69.7 ml/min Estimated GFR () 79.1 Estimated GFR (Non- 68.2 BUN/Creatinine Ratio 11.9 10-20 Random Glucose 107 70-99 mg/dl Calcium Level 8.2 8.5-10.1 mg/dl Chemistry Specimen Hemolysis Assessment & Plan s/p lap R colon -moving bowels but nauseated -keep on clears -ambulate -slow progress
[2017-07-29] MEDS: CIPROFLOXACIN / D5W 400 MG in PREMIXED IN D5W 200 ML IV SCH ×2 (09:38→20:16)
[2017-07-29] MEDS: ASPIRIN 81 MG ECTAB PO SCH (09:39)
[2017-07-29] MEDS: METOPROLOL TARTRATE 25 MG TAB PO SCH (09:39)
[2017-07-29] MEDS: ROSUVASTATIN CALCIUM 20 MG TAB PO SCH (09:39)
[2017-07-29 15:15] VITALS: BP 147/76; PULSE 63; TEMP 36.7; O2SAT 96
[2017-07-29] MEDS: ENOXAPARIN 40 MG/0.4 ML SYR SQ SCH (16:57)
[2017-07-29] MEDS ORDERED: PNEUMOCOCCAL POLYSACCHARIDES 25 MCG/0.5 ML VIAL/SYR IM. ONE (18:00)
[2017-07-29] MEDS ORDERED: PNEUMOCOCCAL ADMINISTRATION CHARGE ONE (18:00)
[2017-07-29] MEDS ORDERED: CLONIDINE HCL 0.1 MG TAB PO PRN (18:15)
--- NOTE | 2017-07-29 18:16 | Progress Note ---
Medicine Progress Note Date & Time of Visit: Jul 29, 2017 at 18:12. Subjective patient seen resting in bed, not in distress has BMs but has nausea abdominal pain decreasing no other symptoms Objective Last 8 Hrs Date Time Temp Pulse Resp B/P (MAP) Pulse Ox O2 Delivery O2 Flow Rate FiO2 07/29/17 15:15 36.7 63 16 147/76 (99) 96 Room Air Physical Exam: General- oriented x 3, not in distress, speaks in sentences with no effort Neck- no JVD Lungs- clear breath sounds bilaterally, no rales/wheezes Heart- regular rhythm; no murmur, normal rate Abdomen- hypoactive-normal bowel sounds, nondistended, soft,mild tenderness Extremities- no pretibial edema, no calf tenderness Neuro- alert, oriented x 3; no gross focal deficits Skin- warm & dry Laboratory Results: Last 24 Hours Test 07/29/17 06:36 White Blood Count 9.39 K/uL Red Blood Count 3.70 M/uL Hemoglobin 11.1 g/dL Hematocrit 30.9 % Mean Corpuscular Volume 83.5 fL Mean Corpuscular Hemoglobin 30.0 pg Mean Corpuscular Hemoglobin Concent 35.9 g/dl Platelet Count 212 K/uL Mean Platelet Volume 9.6 fL Neutrophils (%) (Auto) 79.2 % Lymphocytes (%) (Auto) 5.5 % Monocytes (%) (Auto) 10.1 % Eosinophils (%) (Auto) 1.4 % Basophils (%) (Auto) 0.2 % Neutrophils # (Auto) 7.43 K/uL Lymphocytes # (Auto) 0.52 K/uL Monocytes # (Auto) 0.95 K/uL Eosinophils # (Auto) 0.13 K/uL Basophils # (Auto) 0.02 K/uL RDW Standard Deviation 42.1 fL RDW Coefficient of Variation 13.7 % Immature Granulocyte % (Auto) 3.6 % Immature Granulocyte # (Auto) 0.34 K/uL Sodium Level 137 mmol/L Potassium Level 3.5 mmol/L Chloride Level 103 mmol/L Carbon Dioxide Level 25 mmol/L Anion Gap 9.0 mmol/L Blood Urea Nitrogen 13 mg/dl Creatinine 1.08 mg/dl Est Creatinine Clear Calc Drug Dose 69.7 ml/min Estimated GFR () 79.1 Estimated GFR (Non- 68.2 BUN/Creatinine Ratio 11.9 Random Glucose 107 mg/dl Calcium Level 8.2 mg/dl Chemistry Specimen Hemolysis Assessment & Plan This is a 72yo M with a PMH of HTN, HLD, CAD and chronic sinus bradycardia who is POD#1 s/p laparoscopic assisted R hemicolectomy by Dr. Wynn. S/p R hemicolectomy: -POD#5 - BP slightly elevated, likely from nausea holding Imdur, Losartan as patient's BP was marginal monitor - Low grade fever episode remains afebrile no clear focus of infection on empiric Cipro and Clinda monitor - d/c Relistor HTN: - Usually well-controlled with SBP ~110s, per patient - BP slightly elevated, likely from nausea holding Imdur, Losartan as patient's BP was marginal monitor CAD: - denies cardiac symptoms - on ASA Thank you for this consultation. We will follow the patient with you during their hospital stay. You can reach a member of the [facility] Hospitalist Team 08/01 via pager @ . Current Inpatient Medications: Current Inpatient Medications Medications (Trade) Dose Ordered Sig/Goldy Route Start Time Stop Time Status Last Admin Dose Admin Enoxaparin Sodium (Lovenox Inj) 40 mg Q24H SQ 07/23/17 18:00 08/22/17 17:59 07/29/17 16:57 40 MG Ondansetron HCl (Zofran Inj) 4 mg Q6H PRN IV 07/23/17 10:00 08/22/17 09:59 07/29/17 16:57 4 MG Aspirin (Ecotrin Tab) 81 mg QAM PO 07/25/17 09:00 08/24/17 08:59 07/29/17 09:39 81 MG Metoprolol Tartrate (Lopressor Tab) 25 mg QAM PO 07/25/17 09:00 08/24/17 08:59 07/29/17 09:39 25 MG Nitroglycerin (Nitrostat Tab) 0.4 mg PRN PRN UT 07/24/17 17:30 08/23/17 17:29 Rosuvastatin Calcium (Crestor Tab) 40 mg QAM PO 07/25/17 09:00 08/24/17 08:59 07/29/17 09:39 40 MG Ciprofloxacin/ Dextrose 400 mg/ Prmx 200 ml @ 100 mls/hr Q12 IV 07/25/17 09:00 08/04/17 23:59 07/29/17 09:38 100 MLS/HR Clindamycin Phosphate 600 mg/ Dextrose 54 ml @ 100 mls/hr Q8H IV 07/25/17 10:00 08/04/17 09:59 07/29/17 16:57 100 MLS/HR Hydromorphone HCl (Dilaudid Inj) 0.25 mg Q4H PRN IV 07/27/17 14:30 08/10/17 14:29 Oxycodone/ Acetaminophen (Percocet 5-325mg Tab) 1 tab Q4H PRN PO 07/27/17 17:00 08/10/17 16:59 07/27/17 23:53 1 TAB Oxycodone/ Acetaminophen (Percocet 5-325mg Tab) 2 tab Q4H PRN PO 07/27/17 17:00 08/10/17 16:59 07/28/17 09:56 2 TAB Morphine Sulfate (MoRPHine SULFATE INJ) 1 mg Q2H PRN IV 07/27/17 17:00 08/10/17 16:59 Morphine Sulfate (MoRPHine SULFATE INJ) 2 mg Q2H PRN IV 07/27/17 17:00 08/10/17 16:59 Pneumococcal Polysaccharide Vaccine (Pneumovax-23 Inj) 25 mcg ONCE ONCE IM. 07/29/17 18:00 07/29/17 18:01 UNV
[2017-07-29 23:45] VITALS: BP 153/78; PULSE 67; TEMP 36.9; O2SAT 95
[2017-07-30] MEDS: CLINDAMYCIN IV 600 MG in DEXTROSE 5% 50ML 50 ML IV SCH ×3 (01:42→17:50)
[2017-07-30 06:49] LABS: HEMATOCRIT 32.1 % (42-52); HEMOGLOBIN 11.6 g/dL (14.0-18.0); MEAN CELL VOLUME 82.1 fL (80-100); MEAN CORPUSCULAR HEMOGLOBIN 29.7 pg (25-34); MEAN CORPUSCULAR HGB CONC 36.1 g/dl (32-36); MEAN PLATELET VOLUME 9.1 fL (7.4-10.4); PLATELET COUNT 248 K/uL (130-400); RED CELL DISTRIBUTION WIDTH CV 13.8 % (11.5-14.5); RED CELL DISTRIBUTION WIDTH SD 41.7 fL (36.4-46.3); WHITE BLOOD COUNT 7.62 K/uL (4.8-10.8)
[2017-07-30 07:31] LABS: CALCIUM 8.3 mg/dl (8.5-10.1); CREATININE 1.07 mg/dl (0.60-1.40); POTASSIUM 3.4 mmol/L (3.5-5.1)
[2017-07-30 07:44] VITALS: BP 168/90; PULSE 58; TEMP 37; O2SAT 98
[2017-07-30 08:00] LABS: BASO % 0.4 %; BASO ABS # 0.03 K/uL (0-0.2); EOS % 0.8 %; EOS ABS # 0.06 K/uL (0-0.5); IG# 0.54 K/uL (0.00-0.02); LYMPH % 7.7 %; LYMPH ABS # 0.59 K/uL (1.2-3.4); MONO % 10.2 %; MONO ABS # 0.78 K/uL (0.11-0.59); NEUT % 73.8 %; NEUT ABS # 5.62 K/uL (1.4-6.5)
[2017-07-30 08:28] VITALS: O2SAT 98
[2017-07-30] MEDS: CIPROFLOXACIN / D5W 400 MG in PREMIXED IN D5W 200 ML IV SCH ×2 (08:48→21:40)
[2017-07-30] MEDS: ASPIRIN 81 MG ECTAB PO SCH (08:48)
[2017-07-30] MEDS: ROSUVASTATIN CALCIUM 20 MG TAB PO SCH (08:48)
[2017-07-30] MEDS: METOPROLOL TARTRATE 25 MG TAB PO SCH (08:48)
[2017-07-30] MEDS: OXYCODONE/ACETAMINOPHEN 5-325 TAB PO PRN ×2 (08:49→15:45)
[2017-07-30] MEDS ORDERED: METOCLOPRAMIDE HCL INJ 5 MG/ML 2 ML VIAL IV. PRN (14:15)
--- NOTE | 2017-07-30 15:07 | Surgery Progress Note ---
Surgery Progress Note Date of Service Jul 30, 2017. 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 Wearing mask to prevent nausea Tolerated liquids for this am + bm minimal abdominal pain, more of a back pain/spasm Objective Vital Signs: Date Time Temp Pulse Resp B/P (MAP) Pulse Ox O2 Delivery O2 Flow Rate FiO2 07/30/17 08:28 98 Room Air 07/30/17 08:15 Room Air 07/30/17 07:44 37.0 58 18 168/90 (116) 98 Room Air 07/30/17 00:10 Room Air 07/29/17 23:45 36.9 67 16 153/78 (103) 95 Room Air 07/29/17 17:00 Room Air 07/29/17 15:15 36.7 63 16 147/76 (99) 96 Room Air General Appearance: WD/WN, no apparent distress Head: normocephalic, atraumatic Neck: trachea midline Respiratory/Chest: no respiratory distress, no accessory muscle use Abdomen: non distended, soft, + tenderness (at incision site and right abdomen , appropriate post op) Incision(s): clean, dry, intact, no erythema, no drainage, ecchymosis (to the right of the midline incision), findings (janey present and intact) Laboratory Results: Results Past 24 Hours Test 07/30/17 06:15 Range/Units White Blood Count 7.62 4.8-10.8 K/uL Red Blood Count 3.91 4.7-6.1 M/uL Hemoglobin 11.6 14.0-18.0 g/dL Hematocrit 32.1 42-52 % Mean Corpuscular Volume 82.1 80-100 fL Mean Corpuscular Hemoglobin 29.7 25-34 pg Mean Corpuscular Hemoglobin Concent 36.1 32-36 g/dl Platelet Count 248 130-400 K/uL Mean Platelet Volume 9.1 7.4-10.4 fL Neutrophils (%) (Auto) 73.8 % Lymphocytes (%) (Auto) 7.7 % Monocytes (%) (Auto) 10.2 % Eosinophils (%) (Auto) 0.8 % Basophils (%) (Auto) 0.4 % Neutrophils # (Auto) 5.62 1.4-6.5 K/uL Lymphocytes # (Auto) 0.59 1.2-3.4 K/uL Monocytes # (Auto) 0.78 0.11-0.59 K/uL Eosinophils # (Auto) 0.06 0-0.5 K/uL Basophils # (Auto) 0.03 0-0.2 K/uL RDW Standard Deviation 41.7 36.4-46.3 fL RDW Coefficient of Variation 13.8 11.5-14.5 % Immature Granulocyte % (Auto) 7.1 % Immature Granulocyte # (Auto) 0.54 0.00-0.02 K/uL Toxic Granulation 1+ Echinocytes 1+ Sodium Level 137 136-145 mmol/L Potassium Level 3.4 3.5-5.1 mmol/L Chloride Level 104 98-107 mmol/L Carbon Dioxide Level 26 21-32 mmol/L Anion Gap 7.0 3-11 mmol/L Blood Urea Nitrogen 13 7-18 mg/dl Creatinine 1.07 0.60-1.40 mg/dl Est Creatinine Clear Calc Drug Dose 26.8 ml/min Estimated GFR () 80.0 Estimated GFR (Non- 69.0 BUN/Creatinine Ratio 12.2 10-20 Random Glucose 131 70-99 mg/dl Calcium Level 8.3 8.5-10.1 mg/dl Assessment & Plan POD # 7 s/p laparoscopic assisted right hemicolectomy - vitals stable, afebrile overnight - abdominal pain minimal - + nausea - urinating and ambulating without difficulty Plan: Continue current management Advance diet to soft diet Encouraged ambulation with assistance, OOB to chair, and incentive spirometry Continue SCDs and Lovenox daily Continue PO Percocet as needed for pain Dr. Wynn has seen and examined patient, agrees with above.
[2017-07-30 15:10] VITALS: BP 162/81; PULSE 58; TEMP 36.8; O2SAT 98
[2017-07-30] MEDS: ENOXAPARIN 40 MG/0.4 ML SYR SQ SCH (17:50)
[2017-07-30] MEDS ORDERED: POTASSIUM CHLORIDE 10 MEQ TABCR PO ONE (19:15)
[2017-07-30 20:09] VITALS: BP 127/72; PULSE 96; TEMP 36.5; O2SAT 95
[2017-07-30 22:55] VITALS: BP 136/78; PULSE 58; TEMP 36.8; O2SAT 97
[2017-07-31] MEDS: CLINDAMYCIN IV 600 MG in DEXTROSE 5% 50ML 50 ML IV SCH ×2 (02:14→12:47)
--- NOTE | 2017-07-31 06:45 | Progress Note ---
Medicine Progress Note Date & Time of Visit: Jul 31, 2017 at 06:42. Subjective delayed entry date of service 07/30/17 seen resting in chair comfortable states he feels much better having BMs, tolerated diet so far no dizziness, chest pain, dyspnea denies other symptoms Objective Last 8 Hrs Date Time Temp Pulse Resp B/P (MAP) Pulse Ox O2 Delivery O2 Flow Rate FiO2 07/30/17 23:45 Room Air 07/30/17 22:55 36.8 58 17 136/78 (97) 97 Room Air Physical Exam: General- oriented x 3, not in distress, speaks in sentences with no effort Neck- no JVD Lungs- clear BS BL Heart- regular rhythm; no murmur, normal rate Abdomen- normal bowel sounds, nondistended, soft,mild tenderness Extremities- no pretibial edema, no calf tenderness Neuro- alert, oriented x 3; no gross focal deficits Skin- warm & dry Laboratory Results: Last 24 Hours Test 07/31/17 04:44 Assessment & Plan This is a 72yo M with a PMH of HTN, HLD, CAD and chronic sinus bradycardia who is POD#1 s/p laparoscopic assisted R hemicolectomy by Dr. Wynn. S/p R hemicolectomy: -POD#5 - BP slightly elevated, likely from nausea resume Imdur in AM resume Losartan if needed monitor BP - Low grade fever episode remains afebrile no clear focus of infection on empiric Cipro and Clinda monitor - d/c Relistor HTN: - Usually well-controlled with SBP ~110s, per patient was holding Imdur, Losartan as patient's BP was marginal initially post op - now, BP slightly elevated, likely from nausea resume Imdur in AM also resume Losartan if needed monitor BP CAD: - denies cardiac symptoms - on ASA Thank you for this consultation. We will follow the patient with you during their hospital stay. You can reach a member of the [facility] Hospitalist Team 08/01 via pager @ . Current Inpatient Medications: Current Inpatient Medications Medications (Trade) Dose Ordered Sig/Goldy Route Start Time Stop Time Status Last Admin Dose Admin Enoxaparin Sodium (Lovenox Inj) 40 mg Q24H SQ 07/23/17 18:00 08/22/17 17:59 07/30/17 17:50 40 MG Ondansetron HCl (Zofran Inj) 4 mg Q6H PRN IV 07/23/17 10:00 08/22/17 09:59 07/29/17 23:59 4 MG Aspirin (Ecotrin Tab) 81 mg QAM PO 07/25/17 09:00 08/24/17 08:59 07/30/17 08:48 81 MG Metoprolol Tartrate (Lopressor Tab) 25 mg QAM PO 07/25/17 09:00 08/24/17 08:59 07/30/17 08:48 25 MG Nitroglycerin (Nitrostat Tab) 0.4 mg PRN PRN UT 07/24/17 17:30 08/23/17 17:29 Rosuvastatin Calcium (Crestor Tab) 40 mg QAM PO 07/25/17 09:00 08/24/17 08:59 07/30/17 08:48 40 MG Ciprofloxacin/ Dextrose 400 mg/ Prmx 200 ml @ 100 mls/hr Q12 IV 07/25/17 09:00 08/04/17 23:59 07/30/17 21:40 100 MLS/HR Clindamycin Phosphate 600 mg/ Dextrose 54 ml @ 100 mls/hr Q8H IV 07/25/17 10:00 08/04/17 09:59 07/31/17 02:14 100 MLS/HR Hydromorphone HCl (Dilaudid Inj) 0.25 mg Q4H PRN IV 07/27/17 14:30 08/10/17 14:29 Oxycodone/ Acetaminophen (Percocet 5-325mg Tab) 1 tab Q4H PRN PO 07/27/17 17:00 08/10/17 16:59 07/30/17 15:45 1 TAB Oxycodone/ Acetaminophen (Percocet 5-325mg Tab) 2 tab Q4H PRN PO 07/27/17 17:00 08/10/17 16:59 07/30/17 08:49 2 TAB Morphine Sulfate (MoRPHine SULFATE INJ) 1 mg Q2H PRN IV 07/27/17 17:00 08/10/17 16:59 Morphine Sulfate (MoRPHine SULFATE INJ) 2 mg Q2H PRN IV 07/27/17 17:00 08/10/17 16:59 Clonidine HCl (Catapres Tab) 0.1 mg Q6H PRN PO 07/29/17 18:15 08/28/17 18:14 07/30/17 15:27 0.1 MG Metoclopramide HCl (Reglan Inj) 10 mg Q6H PRN IV. 07/30/17 14:15 08/29/17 14:14 07/30/17 15:45 10 MG Isosorbide Mononitrate (Imdur Ext Rel Tab) 30 mg QAM PO 07/31/17 09:00 08/30/17 08:59
[2017-07-31 08:31] VITALS: BP 164/78; PULSE 58; TEMP 37.1; O2SAT 97
[2017-07-31 08:53] LABS: CALCIUM 8.3 mg/dl (8.5-10.1); CREATININE 1.02 mg/dl (0.60-1.40); POTASSIUM 3.9 mmol/L (3.5-5.1)
[2017-07-31] MEDS ORDERED: ISOSORBIDE MONONITRATE 30 MG TABCR PO SCH (09:00)
[2017-07-31] MEDS: OXYCODONE/ACETAMINOPHEN 5-325 TAB PO PRN ×2 (09:02→10:57)
[2017-07-31] MEDS: CIPROFLOXACIN / D5W 400 MG in PREMIXED IN D5W 200 ML IV SCH (09:02)
[2017-07-31] MEDS: ASPIRIN 81 MG ECTAB PO SCH (09:02)
[2017-07-31] MEDS: ROSUVASTATIN CALCIUM 20 MG TAB PO SCH (09:03)
[2017-07-31] MEDS: METOPROLOL TARTRATE 25 MG TAB PO SCH (09:03)
--- NOTE | 2017-07-31 11:18 | Surgery Progress Note ---
Surgery Progress Note Date of Service Jul 31, 2017. Subjective Post OP Day: POD # 8 s/p laparoscopic assisted right hemicolectomy + feeling well, + ambulating, + pain controlled, + diet (tolerated low fiber diet), No complaints, No chest pain, No SOB, No bowel movement, No flatus, No nausea, No vomiting Objective Vital Signs: Date Time Temp Pulse Resp B/P (MAP) Pulse Ox O2 Delivery O2 Flow Rate FiO2 18 08:31 37.1 58 18 164/78 (106) 97 Room Air 07/30/17 23:45 Room Air 07/30/17 22:55 36.8 58 17 136/78 (97) 97 Room Air 07/30/17 20:09 36.5 96 16 127/72 (90) 95 Room Air 07/30/17 15:45 Room Air 07/30/17 15:10 36.8 58 18 162/81 (108) 98 Room Air General Appearance: WD/WN, no apparent distress Head: normocephalic, atraumatic Neck: trachea midline Respiratory/Chest: lungs clear, normal breath sounds, no respiratory distress, no accessory muscle use Cardiovascular: regular rate, rhythm, no murmur Abdomen: non tender, non distended, soft, no organomegaly, no pulsatile mass, + pertinent finding (ecchymosis to the right of the midline incision, nontender to palpation) Incision(s): clean, dry, intact, no erythema, no drainage, findings (janey present and intact) Laboratory Results: Results Past 24 Hours Test 18 08:01 Range/Units Sodium Level 138 136-145 mmol/L Potassium Level 3.9 3.5-5.1 mmol/L Chloride Level 105 98-107 mmol/L Carbon Dioxide Level 25 21-32 mmol/L Anion Gap 8.0 3-11 mmol/L Blood Urea Nitrogen 13 7-18 mg/dl Creatinine 1.02 0.60-1.40 mg/dl Est Creatinine Clear Calc Drug Dose 28.1 ml/min Estimated GFR () 84.7 Estimated GFR (Non- 73.1 BUN/Creatinine Ratio 12.6 10-20 Random Glucose 102 70-99 mg/dl Calcium Level 8.3 8.5-10.1 mg/dl Assessment & Plan POD # 8 s/p laparoscopic assisted right hemicolectomy -vitals stable, afebrile - no abdominal pain, back spasms - tolerating low fiber diet - nausea resolved - ambulating and urinating without difficulty Plan: Plan for discharge home today Discharge instructions will be reviewed staple removal today d/c antibiotics on discharge Rx for Percocet prn Dr. Wynn has seen and examined patient, agrees with above
[2017-07-31] MEDS ORDERED: OXYC-57 PO (11:20)
[2017-07-31 13:11] VITALS: BP 164/78; PULSE 58; TEMP 37.1; O2SAT 97
== END 2017-07-31 14:24 | disposition home or self-care (01) | DRG 331 ==
LOC: C.ACU 05:33 → C.MSN 06:45 → ENRESERV 10:53 → CMPBEDREQ 12:48
PROVIDERS: ADMIT Surgery; ATTEND Surgery
PROC: 0DTF0ZZ Resection of Right Large Intestine, Open Approach (ICD-10-PCS; principal; 2017-07-23 07:00)
DX: D12.6 Benign neoplasm of colon, unspecified (principal); I10 Essential (primary) hypertension; E78.5 Hyperlipidemia, unspecified; I25.10 Atherosclerotic heart disease of native coronary artery without angina pectoris; R00.1 Bradycardia, unspecified; R11.0 Nausea; R50.9 Fever, unspecified; Z79.82 Long term (current) use of aspirin; Z79.899 Other long term (current) drug therapy; Z87.891 Personal history of nicotine dependence; Z88.1 Allergy status to other antibiotic agents; Z88.8 Allergy status to other drugs, medicaments and biological substances